=== PATIENT | female | born 1935 | race African-American/Black ===

== ENCOUNTER 2017-08-21 13:09 | Inpatient (IN) | payer OTHER, BC ==
[2017-08-21 13:15] VITALS: BMI 27.4
--- NOTE | 2017-08-21 16:36 | PDOC ---
History of Present Illness - General History Source: Patient, Family Exam Limitations: No Limitations - History of Present Illness Initial Comments: 08/21/17 20:24 The patient is a 81 year old female with a significant PMH of hypertension, hyperlipidemia and defibrillator placement (unclear rason) who presents to the emergency department with dizziness and nausea that began earlier today. She reports that she had breakfast this morming and felt okay.The patient reports that her nausea and dizziness began at around 12pm earlier today when she was on her way to the community center that she attends normally. She states that she got a car ride over to her community center and she started to feel her onset of dizziness and nausea while in the car . She reports that when she was dropped off to her community center it was noticed that she looked to be off balance. EMS was called and the patient states that she had associated episode of vomiting while on her way to the ED. She also reports a frontal headache after arriving to the ED. pt does endorse mild headche that started in the ED that is ressure like and in the front of her head.The patient denies any fever, chills or cough. She denies any SOB, chest pain, palpitation or vision change . The patient denies any diarrhea, constipation, She denies any dysuria, urinary frequency, urgency and hematuria. She denies any recent travel. Pt denes any visio nchangses, numbness/tingling/weakness. Allergies: NKA Past surgical history: Defibrillator placement <Linda Wang - Last Filed: 08/22/17 00:02> <Johnathan Arreola - Last Filed: 08/22/17 10:44> - General Chief Complaint: Lightheaded Stated Complaint: NAUSEA/VOMITING Time Seen by Provider: 08/21/17 16:23 NIH Stroke Scale - Last Known Well Date/Time & Onset Date Last Known Well: 08/21/17 Time Last Known Well: 12:00 - Initial Evaluation Level of consciousness: Alert Ask patient the month and their age: Answers both correctly Ask patient to open & close eyes; make fist and let go: Obeys both correctly Best gaze (horizontal eye movement): Normal Visual field testing: No visual field loss Facial paresis (Show teeth/raise eyebrows/close eyes tight): Normal symmetrical movement Motor Function: Left Arm: Normal Motor Function: Right Arm: Normal (extends arm 90 (or 45) degrees for 10 seconds without drift Motor Function: Left Leg: Normal (extends leg 30 degrees for 5 seconds without drift) Motor Function: Right Leg: Normal (extends leg 30 degrees for 5 seconds without drift) Limb Ataxia: Present in one limb Sensory(Use pinprick test arms,legs,trunk,face/side to side): Normal Best language (Describe picture, name items, read sentences): No Aphasia Dysarthria (read several words): Normal articulation Extinction and Inattention: No abnormality - Total Score NIH Stroke Scale Score: 1 <Johnathan Arreola - Last Filed: 08/22/17 10:44> tPA Exclusion checklist 3-4.5h - Time Elapsed Date last known well: 08/21/17 Time last known well: 12:00 (time elapsed approx 4.5 hrs) Elaspsed time: Day(s) and 22 Hour(s) and 43 Minutes - Thrombolytic Therapy Candidate Is patient eligible for thrombolytic therapy: No - Exclusion Criteria 3-4.5 hr SBP greater than 185 or DBP greater than 110mmHg despite tx: No Recent IC/spinal surgery,head trauma or stroke<3mos.: No Hx IC hemorrhage, IC neoplasm, AV malformation or aneurysm: No Active internal bleeding: No Blding diathesis(low plt ct, inc PTT,INR>1.7 or use of NOAC): No Symptoms suggest subarachnoid hemorrhage: No CT demonstrates multilobar infarct(>1/3 cerebral hemiphere): No Arterial puncture at noncompressible site in previous 7 days: No Blood glucose concentration less than 50mg/dL (2.7mmol/L): No - Relative Exclusion Criteria 3-4.5 hr Stroke severity too mild: Yes - Add'l Relative Exclusion 3-4.5 hr Age > 80: Yes - Ineligibility reason(s) Reasons No tPA given: Outside of window - delayed arrival, See reason(s) noted above <Johnathan Arreola - Last Filed: 08/22/17 10:44> Past History <Linda Wang - Last Filed: 08/22/17 00:02> - Past Medical History Cardiac Disorders: Yes COPD: No HTN: Yes - Surgical History Cardiac Surgery: Yes (AICD) - Immunization History Immunization Up to Date: Yes - Suicide/Smoking/Psychosocial Hx Smoking Status: No Smoking History: Never smoked Have you smoked in the past 12 months: No Number of Cigarettes Smoked Daily: 0 Information on smoking cessation initiated: No Hx Alcohol Use: No Drug/Substance Use Hx: No Substance Use Type: None <Johnathan Arreola - Last Filed: 08/22/17 10:44> - Past Medical History Allergies/Adverse Reactions: Allergies Allergy/AdvReac Type Severity Reaction Status Date / Time Penicillins Allergy Unknown Verified 08/21/17 13:11 egg Allergy Verified 08/21/17 13:11 Home Medications: Ambulatory Orders Amlodipine Besylate [Norvasc -] 10 mg PO DAILY 03/31/13 Aspirin [ASA -] 81 mg PO DAILY 03/31/13 Carvedilol [Coreg -] 12.5 mg PO BID 03/31/13 Simvastatin [Zocor] 20 mg PO HS 03/31/13 Ascorbic Acid [Vitamin C -] 500 mg PO DAILY 08/21/17 Cholecalciferol (Vitamin D3) [Vitamin D3] 400 unit PO DAILY 08/21/17 Losartan Potassium 100 mg PO DAILY 08/21/17 Review of Systems - Review of Systems Able to Perform ROS?: Yes Comments:: 08/21/17 20:24 CONSTITUTIONAL: No reported: Fever, Chills, Diaphoresis, Generalized Weakness, Malaise, Loss of Appetite HEENT: No reported: Rhinorrhea, Nasal Congestion, Throat Pain, Throat Swelling, Difficulty Swallowing, Mouth Swelling, Ear Pain, Eye Pain, Visual Changes CARDIOVASCULAR: No reported: Chest Pain, Syncope, Palpitations, Irregular Heart Rate, Lightheadedness, Peripheral Edema RESPIRATORY: No reported: Cough, Shortness of Breath, SOB with Exertion, Orthopnea, Wheezing , Stridor, Hemoptysis GASTROINTESTINAL: Reported (+) Nausea and vomiting No reported: Abdominal pain, Abdominal Distension, Diarrhea, Constipation, Melena, Hematochezia GENITOURINARY: No reported: Dysuria, Frequency, Urgency, Hesitancy, Flank Pain, Genital Pain MUSCULOSKELETAL: No reported: Myalgia, Arthralgia, Joint Swelling, Back pain, Neck Pain SKIN: No reported: Rash, Itching, Pallor HEMEATOLOGIC/IMMUNOLOGIC: No reported: Easy Bleeding, Easy Bruising, Lymphadenopathy, Frequent infections ENDOCRINE: No reported: Unexplained Weight Gain, Unexplained Weight Loss, Heat Intolerance , Cold Intolerance NEUROLOGIC: Reported (+) Headache, and dizziness No reported: Focal Weakness, Paresthesias, Vertigo, Lightheadedness, Unsteady Gait, Seizure, Mental Status Changes, Incontinence PSYCHIATRIC: No reported: Anxiety, Depression <Linda Wang - Last Filed: 08/22/17 00:02> *Physical Exam - Vital Signs Last Vital Signs Temp Pulse Resp BP Pulse Ox 97.7 F 73 14 160/90 96 08/21/17 13:12 08/21/17 17:31 08/21/17 17:31 08/21/17 17:31 08/21/17 17:31 - Physical Exam Comments: 08/21/17 20:25 GENERAL: The patient is awake, alert, and fully oriented, Nontoxic - in no acute distress. HEAD: Normocephalic, atraumatic. EYES: extraocular movements intact, sclera anicteric, conjunctiva clear. ENT: Normal voice, Moist mucous membranes. NECK: Normal range of motion, supple LUNGS: Breath sounds equal, clear to auscultation bilaterally. No wheezes, no rhonchi, no rales. HEART: Regular rate and rhythm, normal S1 and S2 without murmur, rub or gallop. ABDOMEN: Soft, nontender, normoactive bowel sounds. No guarding, no rebound. No CVA tenderness EXTREMITIES: Normal range of motion, no edema. No clubbing or cyanosis. No cords, erythema, or tenderness. NEUROLOGICAL: No facial assymetry, slightly delayed/slow speech, +dysmetria of LUE, strength symmetric b/l in upper.lower extremities, sensation symmetric in upper.lower extremities. No pronator drift. gait deferred PSYCH: Normal mood, normal affect. SKIN: Warm, Dry, normal turgor, <Linda Wang - Last Filed: 08/22/17 00:02> - Vital Signs Last Vital Signs Temp Pulse Resp BP Pulse Ox 97.7 F 66 18 179/98 100 08/21/17 13:12 08/21/17 13:12 08/21/17 13:12 08/21/17 13:12 08/21/17 13:12 <Johnathan Arreola - Last Filed: 08/22/17 10:44> Heart Score/ECG Review - ECG Impressions Comment:: 04/09/18 17:27 Twelve-lead EKG was performed and reviewed by me. There is normal sinus rhythm with rate of 55 First degree AV block Right bundle-branch block, left anterior fascicular block Abnormal R wave progression <Johnathan Arreola - Last Filed: 08/22/17 10:44> ED Treatment Course - LABORATORY CBC & Chemistry Diagram: 08/21/17 17:19 08/21/17 17:19 - ADDITIONAL ORDERS Additional order review: Laboratory Results 08/21/17 08/21/17 17:19 17:19 PT with INR 11.60 INR 1.03 Sodium 140 Potassium 3.7 Chloride 103 Carbon Dioxide 26 Anion Gap 11 BUN 21 H Creatinine 0.9 Creat Clearance w eGFR 59.80 Random Glucose 150 H Calcium 10.4 H Total Bilirubin 0.8 D AST 46 H ALT 22 Alkaline Phosphatase 102 Creatine Kinase 215 H Troponin I < 0.02 B-Natriuretic Peptide 164.98 Total Protein 8.7 H Albumin 4.6 08/21/17 17:19 RBC 5.84 H MCV 81.5 MCHC 33.5 RDW 14.8 MPV 8.2 Neutrophils % 87.4 H D Lymphocytes % 9.4 D Monocytes % 2.4 L Eosinophils % 0.4 D Basophils % 0.4 - RADIOLOGY Radiograph Interpretation: 08/21/17 18:59 EXAM: Cranial CT without contrast INTERPRETATION: In comparison to a previous CT exam of 10/19/2016 there is possible interval development of a subtle 1.7 cm acute left cerebellar hemispheric infarct. Correlate with close follow-up CT. Moderate to marked periventricular and subcortical chronic microvascular ischemic changes are noted. Reported by: Dr. Ma EXAM: Bilateral carotid doppler ultrasound INTERPRETATION:The vertebral arteries appear patent. No Doppler evidence of a high-grade carotid artery stenosis. Reported by: Dr. Ma - Medications Given in the ED: ED Medications Discontinued Medications Generic Name Dose Route Start Last Admin Trade Name Freq PRN Reason Stop Dose Admin Metoclopramide HCl 10 mg 08/21/17 16:39 08/21/17 17:19 Reglan Injection - IVPUSH 08/21/17 16:40 10 mg ONCE ONE Administration Ondansetron HCl 4 mg 08/21/17 16:37 08/21/17 17:19 Zofran Injection IVPB 08/21/17 16:38 Not Given ONCE ONE <Linda Wang - Last Filed: 08/22/17 00:02> - LABORATORY CBC & Chemistry Diagram: 08/22/17 06:00 08/22/17 06:00 <Johnathan Arreola - Last Filed: 08/22/17 10:44> Medical Decision Making - Medical Decision Making 08/21/17 20:[address] Wang at 8:40pm <Linda Wang - Last Filed: 08/22/17 00:02> - Medical Decision Making 08/21/17 16:37 81y F hx of htn, hl, hx of defibrillator placement for unclera reason (? bradycardia) presents with dizziness. The pt states that she was well tihs morning until she got to her day program, she felt alittle dizzy and someone at her center noticed she was not walking steadily and called EMS. Upon EMS transpot, the pt was noted to have an episode of nbnb vomit. Pt dnies any associated severe preceding headache, cp, palpitations, sob, fever/chills, abd pain, back pain, neck pain, numbness/tingling/weakness, vision changes. pt does note a ild headache curerntly since arrival to the ED. on exam pt is slow to answer questions and seem sto hav esome dysmetria of her LUE ddx for pts sypmtoms include possible cva, occult infection, atypical acs, anemia, metabolic derangement, will ck labs including cbc, cmp, trop, cxr, ua, ekg head ct to r/o cva reglan for nausea will place pt on cardiac montiro 08/21/17 19:[address] noted for acute changes in the cerebellum concernin gfor cva will admit for furhter mangaemnet 08/21/17 19:15 cxr clear 08/21/17 20:41 bp elevated, will give labetalol for bp control case dw dr frank agree with admission for furhter management will admit to stroke unit Case discussed in detail with admitting physician including history, physical exam and ancillary studies. Admitting physician has assumed care for the patient, will follow all pending diagnostics and will complete the evaluation and treatment. <Johnathan Arreola - Last Filed: 08/22/17 10:44> *DC/Admit/Observation/Transfer - Attestations Scribe Attestion: 08/21/17 20:26 Documentation prepared by Linda Wang, acting as biomedical field service engineer for Johnathan Arreola MD. <Linda Wang - Last Filed: 08/22/17 00:02> - Discharge Dispostion Admit: Yes <Johnathan Arreola - Last Filed: 08/22/17 10:44> Diagnosis at time of Disposition: Cerebellar infarction - Discharge Dispostion Condition at time of disposition: Guarded
[2017-08-21] MEDS ORDERED: ONDANSETRON 4 MG/2 ML VIAL IVPB ONE (16:37)
[2017-08-21] MEDS ORDERED: METOCLOPRAMIDE HCL INJECTION 10 MG/2 ML VIAL IVPUSH ONE (16:39)
[2017-08-21] MEDS ORDERED: METOCLOPRAMIDE HCL INJECTION 10 MG/2 ML VIAL ONE (16:56)
[2017-08-21 17:26] LABS: BASO % 0.4 % (0-2.0); EOS % 0.4 % (0-4.5); HEMATOCRIT 47.5 % (32.4-45.2); HEMOGLOBIN 15.9 GM/dL (10.7-15.3); LYMPH % 9.4 % (8-40); MCH 27.3 pg (25.7-33.7); MCHC 33.5 g/dl (32.0-36.0); MEAN CELL VOLUME 81.5 fl (80-96); MEAN PLT VOLUME 8.2 fl (7.5-11.1); MONO % 2.4 % (3.8-10.2); NEUT % 87.4 % (42.8-82.8); PLATELET COUNT 235 K/MM3 (134-434); RBC 5.84 M/mm3 (3.60-5.2); RDW 14.8 % (11.6-15.6); WHITE BLOOD COUNT 9.5 K/mm3 (4.0-10.0)
[2017-08-21 17:54] LABS: INR 1.03 (0.82-1.09); PROTHROMBIN TIME (PATIENT) 11.6 SEC (9.98-11.88)
[2017-08-21 17:58] LABS: ALBUMIN 4.6 g/dl (3.4-5.0); ANION GAP 11 (8-16); BILIRUBIN,TOTAL 0.8 mg/dL (0.2-1.0); BLOOD UREA NITROGEN 21 mg/dL (7-18); CALCIUM 10.4 mg/dL (8.5-10.1); CHLORIDE 103 mmol/L (98-107); CO2 26 mmol/L (21-32); CREATININE 0.9 mg/dL (0.55-1.02); GLUCOSE,RANDOM 150 mg/dL (74-106); POTASSIUM 3.7 mmol/L (3.5-5.1); SGOT/AST 46 U/L (15-37); SGPT/ALT 22 U/L (12-78); SODIUM 140 mmol/L (136-145); TOT PROT 8.7 g/dl (6.4-8.2)
[2017-08-21 18:01] LABS: ALK PHOS 102 U/L (45-117); N-TERMINAL BNP 164.98 pg/ml (5-450)
[2017-08-21] MEDS ORDERED: ASPIRIN 81 MG CHEWABLE TABLETS PO ONE (19:19)
[2017-08-21] MEDS ORDERED: ASPIRIN 325 MG TABLET ONE (19:25)
[2017-08-21] MEDS ORDERED: ASPIRIN COATED 81 MG TABLET.EC ONE (19:44)
[2017-08-21 20:32] LABS: URINE APPEARANCE CLOUDY; URINE BILIRUBIN NEGATIVE (<2.0 mg/dL); URINE BLOOD NEGATIVE (NEGATIVE); URINE COLOR YELLOW; URINE GLUCOSE (UA) NEGATIVE (NEGATIVE); URINE KETONE NEGATIVE (NEGATIVE); URINE NITRITE NEGATIVE (NEGATIVE); URINE PROTEIN NEGATIVE (NEGATIVE); URINE UROBILINOGEN NEGATIVE mg/dL (0.2-1.0)
--- NOTE | 2017-08-21 20:39 | PN ---
Teaching Attending Note Name of Resident: Mark Kim ATTENDING PHYSICIAN STATEMENT I saw and evaluated the patient. I reviewed the resident's note and discussed the case with the resident. I agree with the resident's findings and plan as documented. SUBJECTIVE: 81 F with pmhx. of HTN, HLD, and ICD, who presents with dizziness and nausea earlier today, States she was on her way to a community center when she felt dizzy in car. She also felt "off balence." As per daughter her words were slurring. She had a frontal headache upon arrival to ED. No chest pain, or pressure. No visual changes. She had 1 NBNB vomiting episode, in vehicle while on way to ED. No dysuria or increase in frequency. No shortness of breath. OBJECTIVE: Physical: VS: Vital Signs Period Temp Pulse Resp BP Sys/Castellanos Pulse Ox Last 24 Hr 97.7 F 66-73 14-18 160-179/90-98 96-100 GEN: NAD, Resting in bed, AA0x3 HEENT: NCAT, PERRL, Throat without erythema or exudates CARD: RRR S1, S2, ICD RESP: CTAB ABD: BSx4, NTD to palpation EXT: - C/C/E NEURO: CN II-XII Intact, MS +5/5 CBCD WBC 9.5 K/mm3 (4.0-10.0) D 08/21/17 17:19 RBC 5.84 M/mm3 (3.60-5.2) H 08/21/17 17:19 Hgb 15.9 GM/dL (10.7-15.3) H D 08/21/17 17:19 Hct 47.5 % (32.4-45.2) H 08/21/17 17:19 MCV 81.5 fl (80-96) 08/21/17 17:19 MCHC 33.5 g/dl (32.0-36.0) 08/21/17 17:19 RDW 14.8 % (11.6-15.6) 08/21/17 17:19 Plt Count 235 K/MM3 (134-434) 08/21/17 17:19 MPV 8.2 fl (7.5-11.1) 08/21/17 17:19 CMP Sodium 140 mmol/L (136-145) 08/21/17 17:19 Potassium 3.7 mmol/L (3.5-5.1) 08/21/17 17:19 Chloride 103 mmol/L (98-107) 08/21/17 17:19 Carbon Dioxide 26 mmol/L (21-32) 08/21/17 17:19 Anion Gap 11 (8-16) 08/21/17 17:19 BUN 21 mg/dL (7-18) H 08/21/17 17:19 Creatinine 0.9 mg/dL (0.55-1.02) 08/21/17 17:19 Creat Clearance w eGFR 59.80 (>60) 08/21/17 17:19 Random Glucose 150 mg/dL (74-106) H 08/21/17 17:19 Calcium 10.4 mg/dL (8.5-10.1) H 08/21/17 17:19 Total Bilirubin 0.8 mg/dL (0.2-1.0) D 08/21/17 17:19 AST 46 U/L (15-37) H 08/21/17 17:19 ALT 22 U/L (12-78) 08/21/17 17:19 Alkaline Phosphatase 102 U/L (45-117) 08/21/17 17:19 Total Protein 8.7 g/dl (6.4-8.2) H 08/21/17 17:19 Albumin 4.6 g/dl (3.4-5.0) 08/21/17 17:19 CARDIAC ENZYMES Creatine Kinase 215 IU/L (26-192) H 08/21/17 17:19 Troponin I < 0.02 ng/ml (0.00-0.05) 08/21/17 17:19 CT HEAD- Possible interval dev. of subtle 1.7cm acute left cerebellar hemispheric infarct. Correlate w. fu CCT, Mod- Marked subcortical microvascular ischemic changes, ASSESSMENT AND PLAN: 81 year old female with a significant PMH of hypertension, hyperlipidemia and defibrillator placement (unclear rason) who presents to the emergency department with dizziness and nausea being admitted for CVA 1.) CVA - ASA/Statin - Echo/Carotid - Has ICD- Repeat CT HEAD - Neuro consult - TSH. B12, folate - Trend Trop/EKG 2.) HTN - S Slick - Hold BB - C/W Amlodipine 3.) HLD - Statin - Check. Lipid Panel 4.) UTI - UCx - Levaquin 5.) Dvt Ppx - SCDS Place in Stroke Tele
[2017-08-21 20:48] LABS: URINE LEUK ESTERASE 3+ (NEGATIVE)
[2017-08-21 20:50] LABS: EPI CELLS MODERATE /HPF (FEW); URINE BACTERIA MANY /hpf (NONE SEEN); URINE HYALINE CAST 2 /lpf; URINE MUCUS RARE
--- NOTE | 2017-08-21 20:57 | HP ---
CHIEF COMPLAINT: Dizziness PCP: Dr Huerta Neuro: Dr Wang Cardio: Dr Carlson HISTORY OF PRESENT ILLNESS: 79yo F w/ PMHx of HTN, HLD, Defibrillator placement who presented to ED w/ dizziness. At around 12pm this afternoon, patient was heading to her daycare program and suddenly experienced two episodes of dizziness, along with frontal headache and NBNB emesis. Pt walks with a cane, and her gait was noticeably unsteady. She denies similar episodes in the past. Denies focal weakness, numbness, tingling. Denies chest pain, palpitations, SOB, vision changes, diaphoresis. Believes defibrillator did not fire. 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 She was outside tPA window, and was given ASA 325. EKG shows chronic bifascicular block. Labs also notable for UTI. Recent Travel: Denies PAST MEDICAL HISTORY: HTN, HLD PAST SURGICAL HISTORY: Defibrillator Placement Social History: Smoking: Denies Alcohol: Denies Drugs: Denies Allergies Penicillins Allergy (Unknown, Verified 08/21/17 13:11) Egg Allergy (Verified 08/21/17 13:11) HOME MEDICATIONS: Home Medications Medication Instructions Recorded Amlodipine Besylate [Norvasc -] 10 mg PO DAILY 03/31/13 Aspirin [ASA -] 81 mg PO DAILY 03/31/13 Carvedilol [Coreg -] 12.5 mg PO BID 03/31/13 Simvastatin [Zocor] 20 mg PO HS 03/31/13 Ascorbic Acid [Vitamin C -] 500 mg PO DAILY 08/21/17 Cholecalciferol (Vitamin D3) 400 unit PO DAILY 08/21/17 [Vitamin D3] Losartan Potassium 100 mg PO DAILY 08/21/17 REVIEW OF SYSTEMS CONSTITUTIONAL: No fever, chills, diaphoresis, generalized weakness, malaise, loss of appetite, weight change HEENT: No rhinorrhea, nasal congestion, throat pain, throat swelling, difficulty swallowing, mouth swelling, ear pain, eye pain, visual changes CARDIOVASCULAR: No chest pain, syncope, palpitations, irregular heart rate, lightheadedness, peripheral edema RESPIRATORY: No cough, shortness of breath, dyspnea with exertion, orthopnea, wheezing, stridor, hemoptysis GASTROINTESTINAL: No abdominal pain, abdominal distension, nausea, vomiting, diarrhea, constipation, melena, hematochezia GENITOURINARY: No dysuria, frequency, urgency, hesitancy, hematuria, flank pain , genital pain MUSCULOSKELETAL: No myalgia, arthralgia, joint swelling, back pain, neck pain SKIN: No rash, itching, pallor HEMATOLOGIC/IMMUNOLOGIC: No easy bleeding, easy bruising, lymphadenopathy, frequent infections ENDOCRINE: Nounexplained weight gain, unexplained weight loss, heat intolerance , cold intolerance NEUROLOGIC: + headache, +dizziness. No focal weakness or paresthesias, seizure, mental status changes, bladder or bowel incontinence PSYCHIATRIC: No anxiety, depression, suicidal or homicidal ideation, hallucinations. PHYSICAL EXAMINATION Vital Signs Period Temp Pulse Resp BP Sys/Castellanos Pulse Ox Last 24 Hr 97.7 F 66-73 14-18 160-179/90-98 96-100 GEN: AAOx3, No acute distress, slow speech HEENT: PERRLA, EOMi, +nystagmus CV: S1, S2, RRR LUNG: CTABL ABD: Soft, NT, ND, normoactive BS MSK: No edema, no erythema NEURO: CN 2-12 grossly intact No facial droop, no facial sensation deficits No UE or LE muscular or sensation deficits +dysmetria and +disdiadokinesia Pt refused gait assessment. ASSESSMENT/PLAN: 79yo F w/ PMHx of HTN, HLD, Defibrillator placement presented to ED w/ dizziness , found to have acute L cerebellar CVA # Ischemic Cerebellar CVA -- I suspect the patient's dizziness is most likely secondary to acute CVA. Head CT shows possible development of new 1.7cm L cerebellar infarct. Pt has risk factors for ischemic stroke (HTN, HLD). She was out of tPA window. ASA 325mg x1 given. Will allow permissive HTN up to 220/120mmHg. Hold home BB. No stenosis seen on carotid dopplers. Will repeat CT in AM to confirm CVA. Unable to get MRI since defibrillator is not compatible. Echo ordered. NPO for now. Speech/swallow. PT. Neuro consult (Felipe). # Bifascicular Block -- Chronic. It is also possible, but less likely, that her dizziness was 2/2 an arrhythmia, but no new arrhythmias detected on EKG. Pt believes AICD did not fire. Follows w/ Dr Carlson. Will monitor on tele for new arrhythmias. No chest pain philippe. First trops neg. Second set pending. New EKG in AM. # UTI -- Asymptomatic. I suspect this is an incidental finding. UCx obtained. Allergic to PCN. Will treat w/ Levaquin 750 daily. QTc 495. Repeat EKG in AM. # HTN -- Allow permissive HTN. Hold BB. Continue CCB and ARB # HLD -- Continue home lipitor 10 HS # FEN/PPx -- IVNS @42cc/hr. NPO for now until s/s eval -- SCDs. # Dispo -- Admit to stroke tele Case d/w Dr Del Angel & Dr Leger Morning team to takeover care in AM. Mark Kim MD - PGY1 Night [employer] Helper Visit type - Emergency Visit Emergency Visit: Yes ED Registration Date: 08/21/17 Care time: The patient presented to the Emergency Department on the above date and was hospitalized for further evaluation of their emergent condition. - New Patient This patient is new to me today: Yes Date on this admission: 08/22/17 - Critical Care Critical Care patient: No Hospitalist Screening - Patient: 50 - 75 years old and never had a screening colonoscopy: Unknown History of colon or rectal polyps, or CA: Unknown History of IBD, Crohn's disease or UC: Unknown History of abdominal radiation therapy as a child: Unknown - Relative: 1 with colon or rectal CA, or polyps at age 60 or younger: Unknown Colon or rectal CA diagnosed at age 45 or younger: Unknown Multiple relatives with colon or rectal CA: Unknown - Outcome: Screening Result: Negative Screen
[2017-08-21] MEDS ORDERED: SODIUM CHLORIDE 1,000 ML IV SCH (21:00)
[2017-08-21] MEDS: LABETALOL HCL 5 MG/1 ML (100MG/20 ML VIAL) IVPUSH ONE ×2 (21:17→21:36)
[2017-08-21] MEDS ORDERED: LABETALOL HCL 5 MG/1 ML (200MG/40ML VIAL) IVPB ONE (21:18)
[2017-08-21] MEDS: SODIUM CHLORIDE 1,000 ML IV SCH (23:10)
[2017-08-21] MEDS: ATORVASTATIN CA 10 MG TABLET (FP) PO SCH (23:10)
[2017-08-22 07:52] LABS: BASO % 0.2 % (0-2.0); EOS % 0.5 % (0-4.5); HEMATOCRIT 41.6 % (32.4-45.2); HEMOGLOBIN 14.2 GM/dL (10.7-15.3); LYMPH % 15.3 % (8-40); MCH 27.4 pg (25.7-33.7); MCHC 34.1 g/dl (32.0-36.0); MEAN CELL VOLUME 80.2 fl (80-96); MEAN PLT VOLUME 8.3 fl (7.5-11.1); PLATELET COUNT 225 K/MM3 (134-434); RBC 5.19 M/mm3 (3.60-5.2); RDW 14.8 % (11.6-15.6); WHITE BLOOD COUNT 7.6 K/mm3 (4.0-10.0)
[2017-08-22 07:56] LABS: ANION GAP 8 (8-16); BLOOD UREA NITROGEN 14 mg/dL (7-18); CALCIUM 9.3 mg/dL (8.5-10.1); CHLORIDE 107 mmol/L (98-107); CHOLESTEROL 132 mg/dL (50-200); CO2 26 mmol/L (21-32); CREATININE 0.6 mg/dL (0.55-1.02); GLUCOSE,RANDOM 102 mg/dL (74-106); MAGNESIUM 1.9 mg/dL (1.8-2.4); PHOSPHOROUS 3.8 mg/dL (2.5-4.9); POTASSIUM 3.4 mmol/L (3.5-5.1); SODIUM 141 mmol/L (136-145); TRIGLYCERIDES 49 mg/dL (35-160)
[2017-08-22 07:57] LABS: INR 1.1 (0.82-1.09); PROTHROMBIN TIME (PATIENT) 12.4 SEC (9.98-11.88)
[2017-08-22 08:00] LABS: ACTIVATED PTT 29.2 SECONDS (26.9-34.4)
[2017-08-22 08:06] LABS: HDL CHOLESTEROL 63 mg/dL (40-60); LDL CHOLESTEROL (ONLY SJRH) 68 mg/dL (5-100)
[2017-08-22] MEDS ORDERED: POTASSIUM CHLORIDE ORAL LIQUID 20 MEQ/15 ML PO ONE (09:45)
--- NOTE | 2017-08-22 10:37 | EKG ---
Test Reason : Blood Pressure : / mmHG Vent. Rate : 055 BPM Atrial Rate : 055 BPM P-R Int : 236 ms QRS Dur : 168 ms QT Int : 518 ms P-R-T Axes : 041 -71 -01 degrees QTc Int : 495 ms SINUS BRADYCARDIA WITH 1ST DEGREE A-V BLOCK RIGHT BUNDLE BRANCH BLOCK LEFT ANTERIOR FASCICULAR BLOCK BIFASCICULAR BLOCK MODERATE VOLTAGE CRITERIA FOR LVH, MAY BE NORMAL VARIANT ABNORMAL ECG WHEN COMPARED WITH ECG OF 18-JUN-2015 12:33, ID INTERVAL HAS INCREASED Confirmed by MD Ze, Saw ([id number]) on 08/22/2017 10:37:03 AM Referred By: Confirmed By:Saw Kunz MD
[2017-08-22] MEDS ORDERED: POTASSIUM CHLORIDE ORAL LIQUID 20 MEQ/15 ML ONE ×2 (11:00→11:12)
[2017-08-22] MEDS: LOSARTAN POTASSIUM 50 MG TABLET (FP) PO SCH (11:10)
[2017-08-22] MEDS: ASPIRIN 81 MG CHEWABLE TABLETS PO SCH (11:10)
[2017-08-22] MEDS: amLODIPine BESYLATE 10 MG TABLET (FP) PO SCH (11:10)
--- NOTE | 2017-08-22 13:59 | CONSULT ---
Admitting History and Physical - Primary Care Physician PCP: Sekou Davis - Admission History of Present Illness: per emr: 79yo F w/ PMHx of HTN, HLD, Defibrillator placement who presented to ED w/ dizziness. At around 12pm this afternoon, patient was heading to her daycare program and suddenly experienced two episodes of dizziness, along with frontal headache and NBNB emesis. Pt walks with a cane, and her gait was noticeably unsteady. She denies similar episodes in the past. Denies focal weakness, numbness, tingling. Denies chest pain, palpitations, SOB, vision changes, diaphoresis. Believes defibrillator did not fire. 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 She was outside tPA window, and was given ASA 325. EKG shows chronic bifascicular block. Labs also notable for UTI. This is my first consult with this pt. Pt seen in ER. o x 3. Speech mildly imprecise. Pt's daughter reports that her speech was worse yesterday. She feels it is not back to baseline. While speaking to Ms. Loya, she started coughing on her saliva, and then heaving, followed by vomiting clear liquid. Nursing made aware. History Source: Patient, Family Member, Medical Record Limitations to Obtaining History: No Limitations - Smoking History Smoking history: Never smoked Have you smoked in the past 12 months: No Aproximately how many cigarettes per day: 0 - Alcohol/Substance Use Hx Alcohol Use: No History - Admission Reason For Visit: CEREBELLAR INFARCTION - Diagnostics CT Scan: Report Reviewed (acute 1.7cm L cerebellar infarct, w/o hemorrhage) - General Mental Status: Alert and Oriented, Awake and Alert, Able to Follow Commands Attention: Intact Ability to Follow Directions: Excellent Head/Neck Control: WFL - Hearing Hearing: Functional Speech Evaluation - Communication Primary Language: [place] Communication: Yes: Within Normal Limits Oral Expression Ability: Yes: No Impairment - Speech Production Able to Make Needs Known: Yes: WNL Intelligibility: Yes: WNL - Speech Characteristics Voice Loudness: Normal Voice Pitch: Yes: Normal Voice Phonatory-based Quality: Yes: Normal Speech Pattern: Normal Speech Clarity: < 100% Nasal Resonance: Normal Articulation: Yes: Imprecise (slight?) Rate of Speech: Intact - Language/Auditory Comprehension Follows: Yes: 2 Stage Simple Commands Observation: Able to respond to yes/no queries: Yes, Yes/No Confusion: No, Comprehends Conversational Speech: Yes - Language/Verbal Expression Able to Respond to Simple Queries: Yes: WNL Able to Communicate Wants and Needs: Yes: WNL Functional Communication Status: Yes: WNL - Memory/Perception longterm Memory: Yes: WNL Short Term Memory: Yes: WNL - Swallow Evaluation/Bedside Assessment Current Nutritional Intake: NPO Dentition: Yes: Dental Appliance Upper, Dental Appliance Lower Facial Symmetry on Retraction: Symmetrical Facial Movement: Controlled Against Resistance Opening: Normal Against Resistance Closing: Normal Pucker Lips: Normal Smile: Normal Lingual Movement: Normal, Symmetric Lingual Speed of Movement: Normal Lingual Movement Strgth Against Opposition: Normal Lingual Movement Characteristics: Normal Velopharyngeal Movement: Normal Laryngeal Elevation: WFL Laryngeal Movement: Able to Palpate Labial Seal: WFL Oral Prep Time: WFL A-P Transit: WFL Pocketing: None Coughing/Throat Clear: No Change in Voice: No Recommendations - Speech Evaluation, Impression/Plan Impression: Speech slightly imprecise, per daughter.Improved but not at baseline.While speaking to Ms. Loya, she started coughing on her saliva, and then heaving, followed by vomiting clear liquid. Nursing made aware. 3 oz water test (-). Food trials not given due to recent vomiting. Dysphagia not suspected clinically but pt at risk due to cerebellar CVA. - Dysphagia Impressions/Plan Dysphagia Impressions: Ongoing Evaluation *Silent aspiration: cannot be R/O at bedside - Recommendations Diet Consistency: Regular (soft. trial once nausea subsides), Other (monitor tolerance) Medication Administration: Whole with water Liquids: Thin Liquids
[2017-08-22] MEDS ORDERED: PROMETHAZINE HCL 25 MG TABLET PO PRN (16:26)
--- NOTE | 2017-08-22 17:20 | PN ---
Teaching Attending Note Name of Resident: Dilan Mata ATTENDING PHYSICIAN STATEMENT I saw and evaluated the patient. I reviewed the resident's note and discussed the case with the resident. I agree with the resident's findings and plan as documented. SUBJECTIVE: Patient continues to feel dizzy. OBJECTIVE: Vital Signs Period Temp Pulse Resp BP Sys/Castellanos Pulse Ox Last 24 Hr 97.8 F-98.4 F 67-79 14-20 130-160/84-95 96-98 HEART: S1S2, RRR LUNGS: Clear ABDOMEN: Soft, non-tender, non-distended, normal BS EXTREMITIES: No edema NEUROLOGICAL: Alert, oriented, strength and sensation intact, (+) dysmetria Laboratory Results - last 24 hr 08/21/17 08/21/17 08/21/17 17:19 17:19 17:19 WBC 9.5 D RBC 5.84 H Hgb 15.9 H D Hct 47.5 H MCV 81.5 MCH 27.3 MCHC 33.5 RDW 14.8 Plt Count 235 MPV 8.2 Neutrophils % 87.4 H D Lymphocytes % 9.4 D Monocytes % 2.4 L Eosinophils % 0.4 D Basophils % 0.4 PT with INR 11.60 INR 1.03 PTT (Actin FS) Sodium 140 Potassium 3.7 Chloride 103 Carbon Dioxide 26 Anion Gap 11 BUN 21 H Creatinine 0.9 Creat Clearance w eGFR 59.80 Random Glucose 150 H Hemoglobin A1c % Calcium 10.4 H Phosphorus Magnesium Total Bilirubin 0.8 D AST 46 H ALT 22 Alkaline Phosphatase 102 Creatine Kinase 215 H Creatine Kinase Index 1.2 CK-MB (CK-2) 2.759 Troponin I < 0.02 B-Natriuretic Peptide 164.98 Total Protein 8.7 H Albumin 4.6 Triglycerides Cholesterol Total LDL Cholesterol HDL Cholesterol Vitamin B12 Serum Folate TSH Urine Color Urine Appearance Urine pH Ur Specific [place] Urine Protein Urine Glucose (UA) Urine Ketones Urine Blood Urine Nitrite Urine Bilirubin Urine Urobilinogen Ur Leukocyte Esterase Urine WBC (Auto) Urine RBC (Auto) Ur Epithelial Cells Urine Bacteria Hyaline Casts Urine Mucus 08/21/17 08/22/17 08/22/17 20:12 06:00 06:00 WBC 7.6 RBC 5.19 Hgb 14.2 D Hct 41.6 MCV 80.2 MCH 27.4 MCHC 34.1 RDW 14.8 Plt Count 225 MPV 8.3 Neutrophils % 76.0 Lymphocytes % 15.3 D Monocytes % 8.0 D Eosinophils % 0.5 Basophils % 0.2 PT with INR 12.40 H INR 1.10 PTT (Actin FS) 29.2 Sodium Potassium Chloride Carbon Dioxide Anion Gap BUN Creatinine Creat Clearance w eGFR Random Glucose Hemoglobin A1c % Calcium Phosphorus Magnesium Total Bilirubin AST ALT Alkaline Phosphatase Creatine Kinase Creatine Kinase Index CK-MB (CK-2) Troponin I B-Natriuretic Peptide Total Protein Albumin Triglycerides Cholesterol Total LDL Cholesterol HDL Cholesterol Vitamin B12 Serum Folate TSH Urine Color Yellow Urine Appearance Cloudy Urine pH 7.0 Ur Specific [place] 1.014 Urine Protein Negative Urine Glucose (UA) Negative Urine Ketones Negative Urine Blood Negative Urine Nitrite Negative Urine Bilirubin Negative Urine Urobilinogen Negative Ur Leukocyte Esterase 3+ H Urine WBC (Auto) 30 Urine RBC (Auto) 2 Ur Epithelial Cells Moderate Urine Bacteria Many Hyaline Casts 2 Urine Mucus Rare 08/22/17 08/22/17 08/22/17 06:00 06:00 06:00 WBC RBC Hgb Hct MCV MCH MCHC RDW Plt Count MPV Neutrophils % Lymphocytes % Monocytes % Eosinophils % Basophils % PT with INR INR PTT (Actin FS) Sodium 141 Potassium 3.4 L Chloride 107 Carbon Dioxide 26 Anion Gap 8 BUN 14 Creatinine 0.6 Creat Clearance w eGFR Random Glucose 102 Hemoglobin A1c % 6.3 H Calcium 9.3 Phosphorus 3.8 Magnesium 1.9 Total Bilirubin AST ALT Alkaline Phosphatase Creatine Kinase 153 Creatine Kinase Index 1.3 CK-MB (CK-2) 2.110 Troponin I < 0.02 B-Natriuretic Peptide Total Protein Albumin Triglycerides 49 Cholesterol 132 Total LDL Cholesterol 68 HDL Cholesterol 63 H Vitamin B12 418 Cancelled Serum Folate 10 TSH 1.15 Urine Color Urine Appearance Urine pH Ur Specific [place] Urine Protein Urine Glucose (UA) Urine Ketones Urine Blood Urine Nitrite Urine Bilirubin Urine Urobilinogen Ur Leukocyte Esterase Urine WBC (Auto) Urine RBC (Auto) Ur Epithelial Cells Urine Bacteria Hyaline Casts Urine Mucus 08/22/17 06:00 WBC RBC Hgb Hct MCV MCH MCHC RDW Plt Count MPV Neutrophils % Lymphocytes % Monocytes % Eosinophils % Basophils % PT with INR INR PTT (Actin FS) Sodium Potassium Chloride Carbon Dioxide Anion Gap BUN Creatinine Creat Clearance w eGFR Random Glucose Hemoglobin A1c % Calcium Phosphorus Magnesium Total Bilirubin AST ALT Alkaline Phosphatase Creatine Kinase Cancelled Creatine Kinase Index CK-MB (CK-2) Troponin I Cancelled B-Natriuretic Peptide Total Protein Albumin Triglycerides Cholesterol Total LDL Cholesterol HDL Cholesterol Vitamin B12 Serum Folate TSH Urine Color Urine Appearance Urine pH Ur Specific [place] Urine Protein Urine Glucose (UA) Urine Ketones Urine Blood Urine Nitrite Urine Bilirubin Urine Urobilinogen Ur Leukocyte Esterase Urine WBC (Auto) Urine RBC (Auto) Ur Epithelial Cells Urine Bacteria Hyaline Casts Urine Mucus Current Medications Generic Name Dose Route Start Last Admin Trade Name Freq PRN Reason Stop Dose Admin Amlodipine Besylate 10 mg 08/22/17 10:00 08/22/17 11:10 Norvasc - PO 10 mg DAILY JOSE Administration Aspirin 81 mg 08/22/17 10:00 08/22/17 11:10 Asa - PO 81 mg DAILY JOSE Administration Atorvastatin Calcium 10 mg 08/21/17 22:00 08/21/17 23:10 Lipitor - PO 10 mg HS JOSE Administration Sodium Chloride 1,000 mls @ 42 mls/hr 08/21/17 22:10 08/21/17 23:10 Normal Saline - IV 42 mls/hr ASDIR JOSE Administration Levofloxacin 750 mg in 150 mls @ 150 mls/hr 08/22/17 06:00 08/22/17 09:43 Levaquin 750 Mg Premixed Ivpb - IVPB 150 mls/hr DAILY@0600 JOSE Administration Losartan Potassium 100 mg 08/22/17 10:00 08/22/17 11:10 Cozaar - PO 100 mg DAILY JOSE Administration Promethazine HCl 12.5 mg 08/22/17 16:26 Phenergan - PO Q6H PRN NAUSEA AND/OR VOMITING ASSESSMENT AND PLAN: This is an 79 year old woman with a history of HTN, hyperlipidemia, AICD who presented to the ED with dizziness. 1. Acute ischemic left cerebellar infarct - Continue aspirin, Lipitor - CTA of neck and brain - Echocardiogram - Swallow evaluation noted - Physical therapy - Awaiting neurology evaluation 2. UTI - Continue Levaquin - Follow up urine culture 3. HTN - Continue Cozaar, Norvasc 4. Hyperlipidemia - Continue Lipitor 5. Bifascicular block (RBBB + LAFB), first degree AV block
--- NOTE | 2017-08-22 19:36 | PN ---
Physical Exam: SUBJECTIVE: Patient seen and examined at bedside. c/o dizziness and nausea in the ED. OBJECTIVE: Vital Signs Period Temp Pulse Resp BP Sys/Castellanos Pulse Ox Last 24 Hr 97.8 F-98.4 F 67-79 18-20 130-160/84-95 98-98 GENERAL: The patient is awake, alert, and fully oriented, in no acute distress. HEAD: Normal with no signs of trauma. EYES: PERRL, extraocular movements intact, horizontal nystagmus present, sclera anicteric, conjunctiva clear. No ptosis. ENT: Ears normal, nares patent, oropharynx clear without exudates, moist mucous membranes. NECK: Trachea midline, full range of motion, supple. LUNGS: Breath sounds equal, clear to auscultation bilaterally, no wheezes, no crackles, no accessory muscle use. HEART: Regular rate and rhythm, S1, S2 without murmur, rub or gallop. ABDOMEN: Soft, nontender, nondistended, normoactive bowel sounds, no guarding, no rebound, no hepatosplenomegaly, no masses. EXTREMITIES: 2+ pulses, warm, well-perfused, no edema. NEUROLOGICAL: Cranial nerves II through XII grossly intact. Normal speech, gait not observed. Strength 5/5 in all extremities. Dysmetria present. PSYCH: Normal mood, normal affect. SKIN: Warm, dry, normal turgor, no rashes or lesions noted Laboratory Results - last 24 hr 08/21/17 08/21/17 08/22/17 17:19 20:12 06:00 WBC 7.6 RBC 5.19 Hgb 14.2 D Hct 41.6 MCV 80.2 MCH 27.4 MCHC 34.1 RDW 14.8 Plt Count 225 MPV 8.3 Neutrophils % 76.0 Lymphocytes % 15.3 D Monocytes % 8.0 D Eosinophils % 0.5 Basophils % 0.2 PT with INR INR PTT (Actin FS) Sodium Potassium Chloride Carbon Dioxide Anion Gap BUN Creatinine Random Glucose Hemoglobin A1c % Calcium Phosphorus Magnesium Creatine Kinase Creatine Kinase Index 1.2 CK-MB (CK-2) 2.759 Troponin I Triglycerides Cholesterol Total LDL Cholesterol HDL Cholesterol Vitamin B12 Serum Folate TSH Urine Color Yellow Urine Appearance Cloudy Urine pH 7.0 Ur Specific [place] 1.014 Urine Protein Negative Urine Glucose (UA) Negative Urine Ketones Negative Urine Blood Negative Urine Nitrite Negative Urine Bilirubin Negative Urine Urobilinogen Negative Ur Leukocyte Esterase 3+ H Urine WBC (Auto) 30 Urine RBC (Auto) 2 Ur Epithelial Cells Moderate Urine Bacteria Many Hyaline Casts 2 Urine Mucus Rare 08/22/17 08/22/17 08/22/17 06:00 06:00 06:00 WBC RBC Hgb Hct MCV MCH MCHC RDW Plt Count MPV Neutrophils % Lymphocytes % Monocytes % Eosinophils % Basophils % PT with INR 12.40 H INR 1.10 PTT (Actin FS) 29.2 Sodium 141 Potassium 3.4 L Chloride 107 Carbon Dioxide 26 Anion Gap 8 BUN 14 Creatinine 0.6 Random Glucose 102 Hemoglobin A1c % 6.3 H Calcium 9.3 Phosphorus 3.8 Magnesium 1.9 Creatine Kinase 153 Creatine Kinase Index 1.3 CK-MB (CK-2) 2.110 Troponin I < 0.02 Triglycerides 49 Cholesterol 132 Total LDL Cholesterol 68 HDL Cholesterol 63 H Vitamin B12 418 Serum Folate 10 TSH 1.15 Urine Color Urine Appearance Urine pH Ur Specific [place] Urine Protein Urine Glucose (UA) Urine Ketones Urine Blood Urine Nitrite Urine Bilirubin Urine Urobilinogen Ur Leukocyte Esterase Urine WBC (Auto) Urine RBC (Auto) Ur Epithelial Cells Urine Bacteria Hyaline Casts Urine Mucus 08/22/17 08/22/17 06:00 06:00 WBC RBC Hgb Hct MCV MCH MCHC RDW Plt Count MPV Neutrophils % Lymphocytes % Monocytes % Eosinophils % Basophils % PT with INR INR PTT (Actin FS) Sodium Potassium Chloride Carbon Dioxide Anion Gap BUN Creatinine Random Glucose Hemoglobin A1c % Calcium Phosphorus Magnesium Creatine Kinase Cancelled Creatine Kinase Index CK-MB (CK-2) Troponin I Cancelled Triglycerides Cholesterol Total LDL Cholesterol HDL Cholesterol Vitamin B12 Cancelled Serum Folate TSH Urine Color Urine Appearance Urine pH Ur Specific [place] Urine Protein Urine Glucose (UA) Urine Ketones Urine Blood Urine Nitrite Urine Bilirubin Urine Urobilinogen Ur Leukocyte Esterase Urine WBC (Auto) Urine RBC (Auto) Ur Epithelial Cells Urine Bacteria Hyaline Casts Urine Mucus Active Medications Generic Name Dose Route Start Last Admin Trade Name Freq PRN Reason Stop Dose Admin Amlodipine Besylate 10 mg 08/22/17 10:00 08/22/17 11:10 Norvasc - PO 10 mg DAILY JOSE Administration Aspirin 81 mg 08/22/17 10:00 08/22/17 11:10 Asa - PO 81 mg DAILY JOSE Administration Atorvastatin Calcium 10 mg 08/21/17 22:00 08/21/17 23:10 Lipitor - PO 10 mg HS JOSE Administration Sodium Chloride 1,000 mls @ 42 mls/hr 08/21/17 22:10 08/21/17 23:10 Normal Saline - IV 42 mls/hr ASDIR JOSE Administration Levofloxacin 750 mg in 150 mls @ 150 mls/hr 08/22/17 06:00 08/22/17 09:43 Levaquin 750 Mg Premixed Ivpb - IVPB 150 mls/hr DAILY@0600 JOSE Administration Losartan Potassium 100 mg 08/22/17 10:00 08/22/17 11:10 Cozaar - PO 100 mg DAILY JOSE Administration Promethazine HCl 12.5 mg 08/22/17 16:26 Phenergan - PO Q6H PRN NAUSEA AND/OR VOMITING ASSESSMENT/PLAN: 79yo F w/ PMHx of HTN, HLD, Defibrillator placement presented to ED w/ dizziness , found to have acute L cerebellar CVA # Ischemic Cerebellar CVA -Head CT shows possible development of new 1.7cm L cerebellar infarct. -ASA 325mg x1 given. -permissive HTN up to 220/120mmHg. -Speech/swallow eval cleared patient for -PT -Neuro consult -CTA to eval for vascular abnormalities -phenergan prn nausea # Bifascicular Block -Cardio consult -chronic -no palpitations -per patient, ICD did not fire # UTI -pt currently Asymptomatic -UCx pending -Levaquin 750 daily as pt PCN allergic # HTN -Allow permissive HTN -C/w home coreg, norvasc, losartan # HLD -c/w home lipitor 10 HS # FEN -NS @ 42 -monitor lytes #Prophy -SCDs. # Dispo -Admit to stroke tele Visit type - Emergency Visit Emergency Visit: Yes ED Registration Date: 08/21/17 Care time: The patient presented to the Emergency Department on the above date and was hospitalized for further evaluation of their emergent condition. - New Patient This patient is new to me today: Yes Date on this admission: 08/22/17 - Critical Care Critical Care patient: No
--- NOTE | 2017-08-22 21:09 | CONSULT ---
Consult - text type - Consultation Consultation Note: NEUROLOGY CONSULTATION is greatly appreciated: This 81 yo RH woman is seen with her daughter at the bedside. PMH sig for HTN, Chol, ASHD, s/p defibrillator. Maintained on amlodipine, ASA, Carvedilol, simvastatin and losartan. Walks with cane due to pain "buckling" of left knee. Yesterday developed dizziness, unsteady gait, nausea, and dull frontal headache. CT of head x2 (reviewed): shows a new left cerebellar infarct. Old, scattered white mater microvascular changes. Carotid duplex dopplers: No significant stenosis. CADEN: No bruits. Cor reg. S/P PPM No external head trauma NEURO: Awake, alert, OX3. Fluent with min dysarthria CN II-XII normal without Nystagmus. Swallows sips H2O without difficulty. Motor. No drift. Normal strength. Decreased KENN's L>R. Normal reflexes. Toes downgoing Coord: Min Left FTN and HTS dystaxia Sensory: Normal Gait deferred. IMP: New left cerebral ischemic infarct. Etiology most likely Hypertensive. Underlying microvascular disease. SUGGEST: Keep BP in 120/80 range. Add plavix to ASA 81. Cardiology eval Physiatry eval. [facility] transfer for short term in patient rehab. Thank you very much, Waldemar Wang MD
[2017-08-22] MEDS: ATORVASTATIN CA 10 MG TABLET (FP) PO SCH (22:53)
[2017-08-22] MEDS: SODIUM CHLORIDE 1,000 ML IV SCH (22:53)
[2017-08-23 07:50] LABS: BASO % 0.5 % (0-2.0); EOS % 0.9 % (0-4.5); HEMATOCRIT 45.7 % (32.4-45.2); HEMOGLOBIN 15.2 GM/dL (10.7-15.3); MCHC 33.3 g/dl (32.0-36.0); MEAN CELL VOLUME 80.9 fl (80-96); MEAN PLT VOLUME 8.1 fl (7.5-11.1); MONO % 8.8 % (3.8-10.2); NEUT % 76.8 % (42.8-82.8); PLATELET COUNT 216 K/MM3 (134-434); RBC 5.65 M/mm3 (3.60-5.2); RDW 14.8 % (11.6-15.6); WHITE BLOOD COUNT 9.4 K/mm3 (4.0-10.0)
[2017-08-23 08:09] LABS: INR 1.1 (0.82-1.09); PROTHROMBIN TIME (PATIENT) 12.4 SEC (9.98-11.88)
[2017-08-23 08:12] LABS: ACTIVATED PTT 29.3 SECONDS (26.9-34.4)
[2017-08-23 08:28] LABS: ALBUMIN 3.7 g/dl (3.4-5.0); ANION GAP 13 (8-16); BLOOD UREA NITROGEN 12 mg/dL (7-18); CALCIUM 9.9 mg/dL (8.5-10.1); CHLORIDE 106 mmol/L (98-107); CO2 24 mmol/L (21-32); CREATININE 0.7 mg/dL (0.55-1.02); GLUCOSE,RANDOM 117 mg/dL (74-106); MAGNESIUM 2.1 mg/dL (1.8-2.4); PHOSPHOROUS 2.3 mg/dL (2.5-4.9); POTASSIUM 3.3 mmol/L (3.5-5.1); SGOT/AST 41 U/L (15-37); SGPT/ALT 18 U/L (12-78); SODIUM 143 mmol/L (136-145)
[2017-08-23 08:30] LABS: ALK PHOS 93 U/L (45-117); BILIRUBIN,TOTAL 0.8 mg/dL (0.2-1.0)
[2017-08-23] MEDS: LOSARTAN POTASSIUM 50 MG TABLET (FP) PO SCH (09:35)
[2017-08-23] MEDS: amLODIPine BESYLATE 10 MG TABLET (FP) PO SCH (09:36)
[2017-08-23] MEDS: ASPIRIN 81 MG CHEWABLE TABLETS PO SCH (09:36)
[2017-08-23] MEDS: CLOPIDOGREL BISULFATE 75 MG TABLET (FP) PO SCH (12:09)
[2017-08-23] MEDS ORDERED: POTASSIUM CHLORIDE TABS 20 MEQ TABLET.ER (FP) PO ONE (12:15)
--- NOTE | 2017-08-23 12:37 | PN ---
Progress Note, S[employer] - Note Progress Note: Soft diet/thin liquid ordered. Tolerated breakfast. Hiccoughing after drinking water and brief dry cough. She reports it feeling "funny" in throat areas. Esoph dysmotility vs silent aspiration vs normal swallow. Bedside evaluation not conclusive. Still c/o nausea- Cerebellar stroke related? No vomiting since incident in ER. Trial of nectar thick liquid with pt subjectively doing better. Trial [place] thick liquid, soft diet MBS if s/s of dysphagia.
[2017-08-23] MEDS: NAPH,MB-DB/K PH,MBDB POWDER PACKET PO SCH ×2 (14:35→22:06)
--- NOTE | 2017-08-23 19:47 | PN ---
Teaching Attending Note Name of Resident: Dilan Mata ATTENDING PHYSICIAN STATEMENT I saw and evaluated the patient. I reviewed the resident's note and discussed the case with the resident. I agree with the resident's findings and plan as documented. SUBJECTIVE: OBJECTIVE: Vital Signs Temperature 97 F L 08/23/17 14:00 Pulse Rate 83 08/23/17 14:00 Respiratory Rate 20 08/23/17 14:00 Blood Pressure 140/75 08/23/17 14:00 O2 Sat by Pulse Oximetry (%) 96 08/23/17 09:00 CBCD WBC 9.4 K/mm3 (4.0-10.0) 08/23/17 07:05 RBC 5.65 M/mm3 (3.60-5.2) H 08/23/17 07:05 Hgb 15.2 GM/dL (10.7-15.3) 08/23/17 07:05 Hct 45.7 % (32.4-45.2) H 08/23/17 07:05 MCV 80.9 fl (80-96) 08/23/17 07:05 MCHC 33.3 g/dl (32.0-36.0) 08/23/17 07:05 RDW 14.8 % (11.6-15.6) 08/23/17 07:05 Plt Count 216 K/MM3 (134-434) 08/23/17 07:05 MPV 8.1 fl (7.5-11.1) 08/23/17 07:05 CMP Sodium 143 mmol/L (136-145) 08/23/17 07:02 Potassium 3.3 mmol/L (3.5-5.1) L 08/23/17 07:02 Chloride 106 mmol/L (98-107) 08/23/17 07:02 Carbon Dioxide 24 mmol/L (21-32) 08/23/17 07:02 Anion Gap 13 (8-16) 08/23/17 07:02 BUN 12 mg/dL (7-18) 08/23/17 07:02 Creatinine 0.7 mg/dL (0.55-1.02) 08/23/17 07:02 Creat Clearance w eGFR > 60 (>60) 08/23/17 07:02 Random Glucose 117 mg/dL (74-106) H 08/23/17 07:02 Calcium 9.9 mg/dL (8.5-10.1) 08/23/17 07:02 Total Bilirubin 0.8 mg/dL (0.2-1.0) 08/23/17 07:02 AST 41 U/L (15-37) H 08/23/17 07:02 ALT 18 U/L (12-78) 08/23/17 07:02 Alkaline Phosphatase 93 U/L (45-117) 08/23/17 07:02 Total Protein 8.0 g/dl (6.4-8.2) 08/23/17 07:02 Albumin 3.7 g/dl (3.4-5.0) 08/23/17 07:02 CARDIAC ENZYMES Creatine Kinase 153 IU/L (26-192) 08/22/17 06:00 Troponin I < 0.02 ng/ml (0.00-0.05) 08/22/17 06:00 Current Medications Generic Name Dose Route Start Last Admin Trade Name Freq PRN Reason Stop Dose Admin Amlodipine Besylate 10 mg 08/22/17 10:00 08/23/17 09:36 Norvasc - PO 10 mg DAILY JOSE Administration Aspirin 81 mg 08/22/17 10:00 08/23/17 09:36 Asa - PO 81 mg DAILY JOSE Administration Atorvastatin Calcium 10 mg 08/21/17 22:00 08/22/17 22:53 Lipitor - PO 10 mg HS JOSE Administration Clopidogrel Bisulfate 75 mg 08/23/17 11:45 08/23/17 12:09 Plavix - PO 75 mg DAILY JOSE Administration Sodium Chloride 1,000 mls @ 42 mls/hr 08/21/17 22:10 08/22/17 22:53 Normal Saline - IV 42 mls/hr ASDIR JOSE Administration Levofloxacin 750 mg in 150 mls @ 150 mls/hr 08/22/17 06:00 08/23/17 06:19 Levaquin 750 Mg Premixed Ivpb - IVPB 150 mls/hr DAILY@0600 JOSE Administration Losartan Potassium 100 mg 08/22/17 10:00 08/23/17 09:35 Cozaar - PO 100 mg DAILY JOSE Administration Potassium Phos/Sodium Phos 1 packet 08/23/17 14:00 08/23/17 14:35 Phos-Nak Packet - PO 1 packet TID JOSE Administration Promethazine HCl 12.5 mg 08/22/17 16:26 Phenergan - PO Q6H PRN NAUSEA AND/OR VOMITING Home Medications Medication Instructions Recorded Amlodipine Besylate [Norvasc -] 10 mg PO DAILY 03/31/13 Aspirin [ASA -] 81 mg PO DAILY 03/31/13 Carvedilol [Coreg -] 12.5 mg PO BID 03/31/13 Simvastatin [Zocor] 20 mg PO HS 03/31/13 Ascorbic Acid [Vitamin C -] 500 mg PO DAILY 08/21/17 Cholecalciferol (Vitamin D3) 400 unit PO DAILY 08/21/17 [Vitamin D3] Losartan Potassium 100 mg PO DAILY 08/21/17 ASSESSMENT AND PLAN:
--- NOTE | 2017-08-23 20:30 | PN ---
Physical Exam: SUBJECTIVE: Patient seen and examined at bedside. Patient continues to complain of dizziness, but notes improvement today. OBJECTIVE: Vital Signs Period Temp Pulse Resp BP Sys/Castellanos Pulse Ox Last 24 Hr 97 F-98.4 F 76-88 18-20 140-187/75-95 92-96 GENERAL: The patient is awake, alert, and fully oriented, in no acute distress. HEAD: Normal with no signs of trauma. EYES: PERRL, extraocular movements intact, sclera anicteric, conjunctiva clear. No ptosis. NECK: Trachea midline, full range of motion, supple. LUNGS: Breath sounds equal, clear to auscultation bilaterally, no wheezes, no crackles, no accessory muscle use. HEART: Regular rate and rhythm, S1, S2 without murmur, rub or gallop. ABDOMEN: Soft, nontender, nondistended, normoactive bowel sounds, no guarding, no rebound, no hepatosplenomegaly, no masses. EXTREMITIES: 2+ pulses, warm, well-perfused, no edema. NEUROLOGICAL: Cranial nerves II through X grossly intact. Normal speech, gait not observed. strength 5/5 in all extremities b/l. Dysmetria present, but improved since admission. PSYCH: Normal mood, normal affect. SKIN: Warm, dry, normal turgor, no rashes or lesions noted Laboratory Results - last 24 hr 08/23/17 08/23/17 08/23/17 07:02 07:02 07:05 WBC 9.4 RBC 5.65 H Hgb 15.2 Hct 45.7 H MCV 80.9 MCH 27.0 MCHC 33.3 RDW 14.8 Plt Count 216 MPV 8.1 Neutrophils % 76.8 Lymphocytes % 13.0 Monocytes % 8.8 Eosinophils % 0.9 Basophils % 0.5 PT with INR 12.40 H INR 1.10 PTT (Actin FS) 29.3 Sodium 143 Potassium 3.3 L Chloride 106 Carbon Dioxide 24 Anion Gap 13 BUN 12 Creatinine 0.7 Creat Clearance w eGFR > 60 Random Glucose 117 H Calcium 9.9 Phosphorus 2.3 L Magnesium 2.1 Total Bilirubin 0.8 AST 41 H ALT 18 Alkaline Phosphatase 93 Total Protein 8.0 Albumin 3.7 Active Medications Generic Name Dose Route Start Last Admin Trade Name Freq PRN Reason Stop Dose Admin Amlodipine Besylate 10 mg 08/22/17 10:00 08/23/17 09:36 Norvasc - PO 10 mg DAILY JOSE Administration Aspirin 81 mg 08/22/17 10:00 08/23/17 09:36 Asa - PO 81 mg DAILY JOSE Administration Atorvastatin Calcium 10 mg 08/21/17 22:00 08/22/17 22:53 Lipitor - PO 10 mg HS JOSE Administration Clopidogrel Bisulfate 75 mg 08/23/17 11:45 08/23/17 12:09 Plavix - PO 75 mg DAILY JOSE Administration Sodium Chloride 1,000 mls @ 42 mls/hr 08/21/17 22:10 08/22/17 22:53 Normal Saline - IV 42 mls/hr ASDIR JOSE Administration Levofloxacin 750 mg in 150 mls @ 150 mls/hr 08/22/17 06:00 08/23/17 06:19 Levaquin 750 Mg Premixed Ivpb - IVPB 150 mls/hr DAILY@0600 JOSE Administration Losartan Potassium 100 mg 08/22/17 10:00 08/23/17 09:35 Cozaar - PO 100 mg DAILY JOSE Administration Potassium Phos/Sodium Phos 1 packet 08/23/17 14:00 08/23/17 14:35 Phos-Nak Packet - PO 1 packet TID JOSE Administration Promethazine HCl 12.5 mg 08/22/17 16:26 Phenergan - PO Q6H PRN NAUSEA AND/OR VOMITING ASSESSMENT/PLAN: 79yo F w/ PMHx of HTN, HLD, Defibrillator placement presented to ED w/ dizziness , found to have acute L cerebellar CVA # Ischemic Cerebellar CVA -Head CT shows possible development of new 1.7cm L cerebellar infarct. -awaiting placement for [facility] for rehab. -Speech/swallow eval cleared patient for nectar thick liquids -PT -Neuro consult -CTA shows partial occlusion of PICA -phenergan prn nausea # Bifascicular Block -Cardio consult -chronic -no palpitations -per patient, ICD did not fire # UTI -pt currently Asymptomatic -UCx pending -Levaquin 750 daily as pt PCN allergic # HTN -Allow permissive HTN -C/w home coreg, norvasc, losartan # HLD -c/w home lipitor 10 HS # FEN -NS @ 42 -monitor lytes #Prophy -SCDs. # Dispo -Admit to stroke tele Visit type - Emergency Visit Emergency Visit: Yes ED Registration Date: 08/21/17 Care time: The patient presented to the Emergency Department on the above date and was hospitalized for further evaluation of their emergent condition. - New Patient This patient is new to me today: No - Critical Care Critical Care patient: No
[2017-08-23] MEDS: ATORVASTATIN CA 10 MG TABLET (FP) PO SCH (22:06)
[2017-08-23] MEDS: SODIUM CHLORIDE 1,000 ML IV SCH (22:06)
[2017-08-24] MEDS: NAPH,MB-DB/K PH,MBDB POWDER PACKET PO SCH ×2 (05:22→13:02)
[2017-08-24 07:01] LABS: ANION GAP 9 (8-16); BLOOD UREA NITROGEN 11 mg/dL (7-18); CALCIUM 9.5 mg/dL (8.5-10.1); CHLORIDE 106 mmol/L (98-107); CO2 26 mmol/L (21-32); CREATININE 0.7 mg/dL (0.55-1.02); GLUCOSE,RANDOM 109 mg/dL (74-106); MAGNESIUM 1.9 mg/dL (1.8-2.4); PHOSPHOROUS 2.9 mg/dL (2.5-4.9); POTASSIUM 3.5 mmol/L (3.5-5.1); SODIUM 141 mmol/L (136-145)
[2017-08-24] MEDS: amLODIPine BESYLATE 10 MG TABLET (FP) PO SCH (09:05)
[2017-08-24] MEDS: ASPIRIN 81 MG CHEWABLE TABLETS PO SCH (09:05)
[2017-08-24] MEDS: CLOPIDOGREL BISULFATE 75 MG TABLET (FP) PO SCH (09:05)
[2017-08-24] MEDS: LOSARTAN POTASSIUM 50 MG TABLET (FP) PO SCH (09:05)
[2017-08-24] MEDS ORDERED: MAGNESIUM SULF 50% (8.12 MEQ/2 ML-1 GM VIAL) IVPB ONE (12:31)
[2017-08-24] MEDS ORDERED: LACTOBACILLUS ACIDOPHILUS 1 TABLET PO SCH (13:00)
[2017-08-24] MEDS ORDERED: POTASSIUM CHLORIDE TABS 20 MEQ TABLET.ER (FP) PO SCH (13:00)
[2017-08-24] MEDS ORDERED: MAGNESIUM 1GM/D5W - 1 GM/100 ML IVPB IVPB ONE (13:30)
[2017-08-24 15:00] VITALS: BP 141/90; PULSE 81; TEMP 98.6
--- NOTE | 2017-08-24 15:02 | PN ---
Progress Note, DOOR TO DOOR SALES REPRESENTATIVE - Note Progress Note: Selected Entries 08/24/17 08/24/17 08/24/17 02:00 06:00 09:10 Breakfast 75% Lunch Temperature 97.8 F 98.2 F 08/24/17 08/24/17 10:00 13:10 Breakfast Lunch 75% Temperature 98.5 F 98.6 F Tolerating soft diet and [place] thick liquid, soft diet Pending d/c to [facility]. Suggest f/u by sp pathology. MBS, as out pt, to upgrade diet when appropriate or if s/s of dysphagia.
--- NOTE | 2017-08-24 20:45 | DS ---
Physical Exam: SUBJECTIVE: Patient seen and examined at bedside. No new complaints. continues to feel dizzy. OBJECTIVE: Vital Signs Period Temp Pulse Resp BP Sys/Castellanos Pulse Ox Last 24 Hr 97.8 F-98.7 F 75-85 18-20 129-144/77-96 95-96 PHYSICAL EXAM GENERAL: The patient is awake, alert, and fully oriented, in no acute distress. HEAD: Normal with no signs of trauma. EYES: PERRL, extraocular movements intact, sclera anicteric, conjunctiva clear. No ptosis. NECK: Trachea midline, full range of motion, supple. LUNGS: Breath sounds equal, clear to auscultation bilaterally, no wheezes, no crackles, no accessory muscle use. HEART: Regular rate and rhythm, S1, S2 without murmur, rub or gallop. ABDOMEN: Soft, nontender, nondistended, normoactive bowel sounds, no guarding, no rebound, no hepatosplenomegaly, no masses. EXTREMITIES: 2+ pulses, warm, well-perfused, no edema. NEUROLOGICAL: Cranial nerves II through X grossly intact. Normal speech, gait not observed. strength 5/5 in all extremities b/l. Dysmetria present, but improved since admission. PSYCH: Normal mood, normal affect. SKIN: Warm, dry, normal turgor, no rashes or lesions noted LABS Laboratory Results - last 24 hr 08/24/17 05:35 Sodium 141 Potassium 3.5 Chloride 106 Carbon Dioxide 26 Anion Gap 9 BUN 11 Creatinine 0.7 Random Glucose 109 H Calcium 9.5 Phosphorus 2.9 Magnesium 1.9 HOSPITAL COURSE: Date of Admission:08/21/17 The patient is an 79yo F w/ PMHx of HTN, HLD, Defibrillator placement who presented to ED c/o dizziness and unsteadiness for approx. one day prior to admission. In the ED, she was seen to be dizzy, nauseous and had several episodes of NBNB vomiting. A CT head showed a new 1.7 cm L cerebellar infarct without hemorrhage. The patient was outside of the TPa window. The patient was admitted for further treatment. Neurology was consulted. A speech and swallow eval was obtained. An MRI was contraindicated as the patient had a pacemaker. Physical therapy was ordered. The patient was found to also have a UTI. She was treated with reglan, phenergan, labetolol, levofloxacin for 3 days (patient had a PCN allergy) and plavix. The patient had improvement of symptoms. The patient was discharged to [facility] for further rehabilitation. She was instructed to follow up with her PCP, a neurologist and a architectural engineering teacher after discharge. Date of Discharge: 08/24/17 Minutes to complete discharge: 65 <LeidyleidyDilan buckner - Last Filed: 08/24/17 20:34> Physical Exam: Patient has no new complains , is being discharged to rehab fallon Lucero at bedside. Vital Signs Temperature 98.6 F 08/24/17 13:10 Pulse Rate 81 08/24/17 13:10 Respiratory Rate 19 08/24/17 13:10 Blood Pressure 141/90 08/24/17 13:10 O2 Sat by Pulse Oximetry (%) 96 08/24/17 10:00 CBCD WBC 9.4 K/mm3 (4.0-10.0) 08/23/17 07:05 RBC 5.65 M/mm3 (3.60-5.2) H 08/23/17 07:05 Hgb 15.2 GM/dL (10.7-15.3) 08/23/17 07:05 Hct 45.7 % (32.4-45.2) H 08/23/17 07:05 MCV 80.9 fl (80-96) 08/23/17 07:05 MCHC 33.3 g/dl (32.0-36.0) 08/23/17 07:05 RDW 14.8 % (11.6-15.6) 08/23/17 07:05 Plt Count 216 K/MM3 (134-434) 08/23/17 07:05 MPV 8.1 fl (7.5-11.1) 08/23/17 07:05 CMP Sodium 141 mmol/L (136-145) 08/24/17 05:35 Potassium 3.5 mmol/L (3.5-5.1) 08/24/17 05:35 Chloride 106 mmol/L (98-107) 08/24/17 05:35 Carbon Dioxide 26 mmol/L (21-32) 08/24/17 05:35 Anion Gap 9 (8-16) 08/24/17 05:35 BUN 11 mg/dL (7-18) 08/24/17 05:35 Creatinine 0.7 mg/dL (0.55-1.02) 08/24/17 05:35 Creat Clearance w eGFR > 60 (>60) 08/23/17 07:02 Random Glucose 109 mg/dL (74-106) H 08/24/17 05:35 Calcium 9.5 mg/dL (8.5-10.1) 08/24/17 05:35 Total Bilirubin 0.8 mg/dL (0.2-1.0) 08/23/17 07:02 AST 41 U/L (15-37) H 08/23/17 07:02 ALT 18 U/L (12-78) 08/23/17 07:02 Alkaline Phosphatase 93 U/L (45-117) 08/23/17 07:02 Total Protein 8.0 g/dl (6.4-8.2) 08/23/17 07:02 Albumin 3.7 g/dl (3.4-5.0) 08/23/17 07:02 CARDIAC ENZYMES Creatine Kinase 153 IU/L (26-192) 08/22/17 06:00 Troponin I < 0.02 ng/ml (0.00-0.05) 08/22/17 06:00 Home Medications Medication Instructions Recorded Amlodipine Besylate [Norvasc -] 10 mg PO DAILY 03/31/13 Aspirin [ASA -] 81 mg PO DAILY 03/31/13 Carvedilol [Coreg -] 12.5 mg PO BID 03/31/13 Simvastatin [Zocor -] 20 mg PO HS 03/31/13 Ascorbic Acid [Vitamin C -] 500 mg PO DAILY 08/21/17 Cholecalciferol (Vitamin D3) 400 unit PO DAILY 08/21/17 [Vitamin D3] Losartan Potassium 100 mg PO DAILY 08/21/17 Clopidogrel Bisulfate [Plavix -] 75 mg PO DAILY #30 tablet 08/24/17 Lactobacillus Acidophilus [Bacid -] 1 cap PO BID #60 cap 08/24/17 <Chidi Paz - Last Filed: 08/24/17 20:49> Discharge Summary Reason For Visit: CEREBELLAR INFARCTION - Home Medications Comprehensive Discharge Medication List: Ambulatory Orders Amlodipine Besylate [Norvasc -] 10 mg PO DAILY 03/31/13 Aspirin [ASA -] 81 mg PO DAILY 03/31/13 Carvedilol [Coreg -] 12.5 mg PO BID 03/31/13 Simvastatin [Zocor -] 20 mg PO HS 03/31/13 Ascorbic Acid [Vitamin C -] 500 mg PO DAILY 08/21/17 Cholecalciferol (Vitamin D3) [Vitamin D3] 400 unit PO DAILY 08/21/17 Losartan Potassium 100 mg PO DAILY 08/21/17 Clopidogrel Bisulfate [Plavix -] 75 mg PO DAILY #30 tablet 08/24/17 Lactobacillus Acidophilus [Bacid -] 1 cap PO BID #60 cap 08/24/17 <Dilan Mata - Last Filed: 08/24/17 20:34> - Home Medications Comprehensive Discharge Medication List: Ambulatory Orders Amlodipine Besylate [Norvasc -] 10 mg PO DAILY 03/31/13 Aspirin [ASA -] 81 mg PO DAILY 03/31/13 Carvedilol [Coreg -] 12.5 mg PO BID 03/31/13 Simvastatin [Zocor -] 20 mg PO HS 03/31/13 Ascorbic Acid [Vitamin C -] 500 mg PO DAILY 08/21/17 Cholecalciferol (Vitamin D3) [Vitamin D3] 400 unit PO DAILY 08/21/17 Losartan Potassium 100 mg PO DAILY 08/21/17 Clopidogrel Bisulfate [Plavix -] 75 mg PO DAILY #30 tablet 08/24/17 Lactobacillus Acidophilus [Bacid -] 1 cap PO BID #60 cap 08/24/17 <Chidi Paz - Last Filed: 08/24/17 20:49> Condition: Improved - Instructions Diet, Activity, Other Instructions: You were admitted for the treatment of your stroke. You were also treated for a UTI with Levaquin 750mg IV for 3 days. We are transferring you to [facility] for rehab so that you can get stronger. We are sending you home with a new medication to help thin your blood and prevent another stroke. This medication is called plavix. You should take 75mg of this medication once per day. please do not stop the medication at any time, and do not skip a dose unless discussed with your neurologist. You should continue to take the rest of your home medications as prescribed. You should follow up with your primary care physician within one week of discharge. Information for Dr. No has been included in your discharge paperwork. please call to make an appointment. You should also follow up with a neurologist within one week of discharge home. Information for Dr. Wang has been included in your discharge paperwork. Please call to make an appointment. You should also follow up with a architectural engineering teacher within one week of discharge home. Information for Dr. Oropeza has been included in your discharge paperwork. Please call to make an appointment. If you begin to experience chest pain, shortness of breath, worsening dizziness , worsening weakness or if any of your symptoms get worse, please call your doctor or return to the emergency department. Referrals: Moi Huerta MD [Primary Care Provider] - 1 Week Waldemar Wang MD [Staff Physician] - 1 Week Chato Oropeza MD [Staff Physician] - 1 Week Disposition: LONG-TERM FACILITY This patient is new to me today: No Emergency Visit: Yes ED Registration Date: 08/21/17 Care time: The patient presented to the Emergency Department on the above date and was hospitalized for further evaluation of their emergent condition. Critical Care patient: No - Discharge Referral Referred to [facility] Yes Physician Referral: Moi No MD ([facility]) <Dilan Mata - Last Filed: 08/24/17 20:34>
== END 2017-08-24 16:09 | DRG 65 ==
LOC: JER 13:09 → JERBED 20:42 → J4S 08-22 22:12
PROVIDERS: ADMIT Internal Medicine; ATTEND Internal Medicine
DX: I63.9 Cerebral infarction, unspecified (principal); I45.2 Bifascicular block; N39.0 Urinary tract infection, site not specified; I10 Essential (primary) hypertension; E78.5 Hyperlipidemia, unspecified
CPT/HCPCS: 36415; 70450-TC; 70496-TC; 71045-TC-FY; 80048; 80053; 80061; 81003; 81015; 82550; 82553; 82607; 82746; 83036; 83721; 83735; 83880; 84100; 84443; 84484; 85025; 85610; 85730; 87086; 93005; 93010; 93306-TC; 93880-TC; 97116-GP; 97162-GP; 99285-25; J7030

== ENCOUNTER 2019-06-04 12:56 | Emergency (ER) | payer BC, OTHER ==
[2019-06-04 13:08] VITALS: BP 124/74; PULSE 88; TEMP 97.8; BMI 24.7
--- NOTE | 2019-06-04 13:09 | PDOC ---
Rapid Medical Evaluation Time Seen by Provider: 06/04/19 13:05 Medical Evaluation: Allergies Allergy/AdvReac Type Severity Reaction Status Date / Time Penicillins Allergy Unknown Verified 08/21/17 13:11 egg Allergy Verified 08/21/17 13:11 06/04/19 13:05 cc: unsteady gait > 1 week HPI: Patient brought in for unsteady gait and change in mentation. PE: walking with walker, no facial drooping no pronation drift orders: labs, head ct This patient will proceed to the main emergency department for further evaluation Discharge Disposition - Diagnosis Unsteady gait - Referrals - Patient Instructions - Post Discharge Activity
[2019-06-04 15:47] LABS: BASO % 0.2 % (0-2.0); HEMATOCRIT 44.2 % (32.4-45.2); HEMOGLOBIN 14.6 GM/dL (10.7-15.3); LYMPH % 17.4 % (8-40); MCH 27.1 pg (25.7-33.7); MEAN CELL VOLUME 82.3 fl (80-96); MEAN PLT VOLUME 7.8 fl (7.5-11.1); NEUT % 71.4 % (42.8-82.8); PLATELET COUNT 263 K/MM3 (134-434); RBC 5.37 M/mm3 (3.60-5.2); RDW 14.9 % (11.6-15.6)
--- NOTE | 2019-06-04 17:08 | PDOC ---
History of Present Illness - General Chief Complaint: Weakness Stated Complaint: FALL Time Seen by Provider: 06/04/19 13:05 History Source: Patient Exam Limitations: No Limitations - History of Present Illness Initial Comments: 06/04/19 16:08 83-year-old female presents to ED status post fall approximately 1 week ago while in the bathroom. As per daughter patient landed between the toilet and the bathtub but di d not hit the floor and was able to get up and ambulate back to the bedroom. But since then the daughter states patient has been a little bit more confused and unsure if she is having a recurrent stroke due to her history of CVA 2 years ago. Patient states did not hit her head nor did she pass out. Patient is currently asymptomatic including urinary complaints, headache, visual changes or abdominal pain. Patient has had no change in solid intake and drinking enough fluids. Is this a multiple visit Asthma Patient?: No Timing/Duration: 1 week Severity: mild Associated Symptoms: reports: weakness Past History - Travel Traveled outside of the country in the last 30 days: No Close contact w/someone who was outside of country & ill: No - Past Medical History Allergies/Adverse Reactions: Allergies Allergy/AdvReac Type Severity Reaction Status Date / Time Penicillins Allergy Unknown Verified 06/04/19 13:08 egg Allergy Verified 06/04/19 13:08 Home Medications: Ambulatory Orders Amlodipine Besylate [Norvasc -] 10 mg PO DAILY 03/31/13 Aspirin [ASA -] 81 mg PO DAILY 03/31/13 Carvedilol [Coreg -] 12.5 mg PO BID 03/31/13 Simvastatin [Zocor -] 20 mg PO HS 03/31/13 Ascorbic Acid [Vitamin C -] 500 mg PO DAILY 08/21/17 Cholecalciferol (Vitamin D3) [Vitamin D3] 400 unit PO DAILY 08/21/17 Losartan Potassium 100 mg PO DAILY 08/21/17 Clopidogrel Bisulfate [Plavix -] 75 mg PO DAILY #30 tablet 08/24/17 Lactobacillus Acidophilus [Bacid -] 1 cap PO BID #60 cap 08/24/17 Cardiac Disorders: Yes COPD: No HTN: Yes - Surgical History Cardiac Surgery: Yes (AICD) - Immunization History Immunization Up to Date: Yes - Psycho Social/Smoking Cessation Hx Smoking Status: No Smoking History: Never smoked Have you smoked in the past 12 months: No Number of Cigarettes Smoked Daily: 0 Hx Alcohol Use: No Drug/Substance Use Hx: No Substance Use Type: None Patient Lives Alone: No Lives with/in: daughter Review of Systems - Review of Systems Able to Perform ROS?: Yes Is the patient limited Cymraes proficient: No Constitutional: No: Symptoms Reported HEENTM: No: Symptoms Reported Respiratory: No: Symptoms reported Cardiac (ROS): No: Symptoms Reported ABD/GI: No: Symptoms Reported : No: Symptoms Reported Musculoskeletal: No: Symptoms Reported Integumentary: No: Symptoms Reported Neurological: Yes: Weakness Hematologic/Lymphatic: No: Symptoms Reported *Physical Exam - Vital Signs Last Vital Signs Temp Pulse Resp BP Pulse Ox 97.8 F 88 18 124/74 98 06/04/19 13:03 06/04/19 13:03 06/04/19 13:03 06/04/19 13:03 06/04/19 13:03 - Physical Exam General Appearance: Yes: Nourished, Appropriately Dressed. No: Apparent Distress HEENT: positive: EOMI, TMs Normal, Pharynx Normal. negative: Pale Conjunctivae Neck: positive: Supple Respiratory/Chest: positive: Lungs Clear, Normal Breath Sounds. negative: Respiratory Distress, Accessory Muscle Use Cardiovascular: positive: Regular Rhythm, Regular Rate. negative: Murmur Gastrointestinal/Abdominal: positive: Soft. negative: Tenderness Extremity: positive: Normal Inspection Integumentary: positive: Normal Color, Warm, Moist Neurologic: positive: Fully Oriented, Alert, Normal Mood/Affect, Motor Strength 5/5 (ambulatory with walker) ED Treatment Course - LABORATORY CBC & Chemistry Diagram: 06/04/19 14:25 - ADDITIONAL ORDERS Additional order review: Laboratory Results 06/04/19 14:25 Troponin I < 0.02 06/04/19 14:25 RBC 5.37 H MCV 82.3 MCHC 33.0 RDW 14.9 MPV 7.8 Neutrophils % 71.4 Lymphocytes % 17.4 D Monocytes % 9.0 Eosinophils % 2.0 D Basophils % 0.2 Medical Decision Making - Medical Decision Making 06/04/19 16:12 Chief complaint: Intermittent weakness for the past week since her fall in the bathroom 1 week ago. no c/o confusion Exam: No neurofocal deficits vital signs stable. No visible injury. Plan: Head CT, labs and urine ordered 06/04/19 17:13 Laboratory Tests 06/04/19 06/04/19 14:25 14:25 WBC 8.0 Hgb 14.6 Hct 44.2 Absolute Neuts (auto) 5.7 Troponin I < 0.[address] negative for acute pathology. Urine pending. 06/04/19 18:04 Laboratory Tests 06/04/19 16:35 Urine Appearance Turbid Urine pH >= 9.0 H D Ur Specific [place] 1.026 Urine Protein 100 Urine Ketones Trace H Urine Blood Negative Urine Nitrite Negative Urine Bilirubin Negative Ur Leukocyte Esterase 4+ H Urine WBC (Auto) 307.0 Urine RBC (Auto) 5.5 Urine Casts (Auto) 492.39 U Epithel Cells (Auto) 4.0 Urine Bacteria (Auto) 5994.7 06/04/19 18:06 Patient to be treated with Bactrim urine culture sent Discharge - Discharge Information Problems reviewed: Yes Clinical Impression/Diagnosis: UTI (urinary tract infection) Condition: Good Disposition: HOME - Follow up/Referral Referrals: Moi Huerta MD [Primary Care Provider] - - Patient Discharge Instructions Patient Printed Discharge Instructions: DI for Urinary Tract Infection (UTI) Additional Instructions: Have patient drink plenty of fluids clean well from front to back, wear cotton underwear and change under briefs frequently if wearing incontinent pads. Take antibiotics as prescribed and follow-up with urologist - Post Discharge Activity
[2019-06-04 17:59] LABS: PH,URINE >= 9.0 (5.0-8.0); URINE APPEARANCE TURBID; URINE BILIRUBIN NEGATIVE (NEGATIVE); URINE COLOR DK YELLOW; URINE GLUCOSE (UA) NEGATIVE (NEGATIVE); URINE KETONE TRACE (NEGATIVE); URINE PROTEIN 100 (NEGATIVE)
[2019-06-04 18:00] LABS: HYALINE CASTS 492.39 /lpf (0-8); URINE BACTERIA 5994.7 /hpf (NEGATIVE); URINE LEUK ESTERASE 4+ (NEGATIVE); URINE NITRITE NEGATIVE (NEGATIVE); URINE RBC 5.5 /hpf (0-4)
== END 2019-06-04 17:05 | disposition home or self-care (01) ==
LOC: JER 12:56
DX: N39.0 Urinary tract infection, site not specified (principal); W18.39XA Other fall on same level, initial encounter; Y93.89 Activity, other specified; Y92.012 Bathroom of single-family (private) house as the place of occurrence of the external cause; Y99.8 Other external cause status; Z88.0 Allergy status to penicillin; Z91.012 Allergy to eggs; I25.10 Atherosclerotic heart disease of native coronary artery without angina pectoris; I10 Essential (primary) hypertension; Z95.810 Presence of automatic (implantable) cardiac defibrillator; Z86.73 Personal history of transient ischemic attack (TIA), and cerebral infarction without residual deficits; Z99.89 Dependence on other enabling machines and devices
CPT/HCPCS: 36415; 70450-TC; 81003; 84484; 85025; 87086; 87186; 99283-25

== ENCOUNTER 2019-06-27 14:50 | Emergency (ER) | payer BC, OTHER ==
[2019-06-27 15:20] VITALS: BP 138/76; PULSE 66; TEMP 98.3; BMI 24.6
[2019-06-27 15:48] LABS: EPI CELLS 2.5 /HPF (0-5/HPF); HYALINE CASTS 17 /lpf (0-8); URINE APPEARANCE TURBID; URINE BACTERIA 477.3 /hpf (NEGATIVE); URINE BILIRUBIN NEGATIVE (NEGATIVE); URINE COLOR DK YELLOW; URINE GLUCOSE (UA) NEGATIVE (NEGATIVE); URINE KETONE TRACE (NEGATIVE); URINE LEUK ESTERASE 3+ (NEGATIVE); URINE NITRITE NEGATIVE (NEGATIVE); URINE PROTEIN 3+ (NEGATIVE); URINE WBC 938 /hpf (0-5)
[2019-06-27 16:03] LABS: URINE CRYSTALS NON SEEN /hpf; URINE RBC 403.6 /hpf (0-4); YEAST NON SEEN (NEGATIVE)
[2019-06-27] MEDS ORDERED: CEPHALEXIN MONOHYDRATE 500 MG CAPSULE (UD) PO ONE (16:49)
--- NOTE | 2019-06-27 16:55 | PDOC ---
Attending Attestation - Resident Resident Name: PengQuirino - ED Attending Attestation I have performed the following: I have examined & evaluated the patient, The case was reviewed & discussed with the resident, I agree w/resident's findings & plan, Exceptions are as noted - HPI HPI: 06/27/19 16:52 83yoF hx of parkinson's disease, dementia, frequent UTI presents brought by family for concern of recurrent UTI. Per family, pt seems slightly more unsteady than usual and seems less insurance defense attorney than usual today. These are typically symptoms of her UTI. No fevers, no n/v/d, no c/o dysuria, no back/ flank pain, no cp/sob, no uri/cough. - Physicial Exam PE: 06/27/19 16:53 NAD, well appearing RRR CTABL soft NTND ambulating w/ steady gait independantly in ED. pt is answering questions appropriately A&O x 3 - Medical Decision Making 06/27/19 16:54 83yoF w/ concerns by family for UTI, mild decline in function today. - UA - dispo per results, +/- abx.
--- NOTE | 2019-06-27 16:56 | PDOC ---
History of Present Illness - General Chief Complaint: Revisit, Lab Variance Stated Complaint: FOLLOW UP Time Seen by Provider: 06/27/19 16:18 History Source: Patient Exam Limitations: No Limitations - History of Present Illness Initial Comments: 06/27/19 16:51 HPI: 83yo F PMH Parkinson's, overactive bladder, recurrent UTIs, presenting with burning with urination. Denies fevers, chills, nausea, vomiting, headache, feeling ill, changes in mentation. Alert and oriented to person, place, time. Parkinson's symptoms progressing over the past several months with confusion regarding which family member's have daughters and where people live. Progressive subacute changes in her gait. No chest pain, SOB, cough, difficulty breathing, pain. Past History - Travel Traveled outside of the country in the last 30 days: No Close contact w/someone who was outside of country & ill: No - Past Medical History Allergies/Adverse Reactions: Allergies Allergy/AdvReac Type Severity Reaction Status Date / Time Penicillins Allergy Unknown Verified 06/04/19 13:08 egg Allergy Verified 06/04/19 13:08 Home Medications: Ambulatory Orders Amlodipine Besylate [Norvasc -] 10 mg PO DAILY 03/31/13 Aspirin [ASA -] 81 mg PO DAILY 03/31/13 Carvedilol [Coreg -] 12.5 mg PO BID 03/31/13 Simvastatin [Zocor -] 20 mg PO HS 03/31/13 Losartan Potassium 100 mg PO DAILY 08/21/17 Clopidogrel Bisulfate [Plavix -] 75 mg PO DAILY #30 tablet 08/24/17 Bupropion HCl [Bupropion Xl] 150 mg PO DAILY 06/27/19 Carbidopa/Levodopa [Carbidopa-Levo ER 50-200 Tab] 1 tab PO TID 06/27/19 Cephalexin [Keflex] 500 mg PO TID 7 Days #21 capsule 06/27/19 Mirabegron [Myrbetriq] 25 mg PO DAILY 06/27/19 Cardiac Disorders: Yes COPD: No HTN: Yes - Surgical History Cardiac Surgery: Yes (AICD) - Immunization History Immunization Up to Date: Yes - Psycho Social/Smoking Cessation Hx Smoking Status: No Smoking History: Never smoked Have you smoked in the past 12 months: No Number of Cigarettes Smoked Daily: 0 Hx Alcohol Use: No Drug/Substance Use Hx: No Substance Use Type: None Review of Systems - Review of Systems Able to Perform ROS?: Yes Is the patient limited [place] proficient: Yes Constitutional: No: Chills, Fever HEENTM: No: Nose Congestion, Throat Pain Respiratory: No: Cough, Shortness of Breath, Stridor, Wheezing, Productive cough Cardiac (ROS): No: Chest Pain, Irregular Heart Rate, Lightheadedness, Palpitations, Syncope, Chest Tightness ABD/GI: No: Constipated, Diarrhea, Nausea, Vomiting : Yes: Burning. No: Dysuria, Discharge, Frequency, Urgency Musculoskeletal: No: Back Pain, Muscle Pain, Muscle Weakness Integumentary: No: Change in Color, Pruritus, Rash Neurological: No: Headache, Numbness, Tingling, Weakness Psychiatric: No: Stressors, Change in Appetite Endocrine: No: Increased Thirst, Increased Urine Hematologic/Lymphatic: No: Anemia, Blood Clots, Easy Bleeding All Other Systems: Reviewed and Negative *Physical Exam - Vital Signs Last Vital Signs Temp Pulse Resp BP Pulse Ox 98.3 F 66 18 138/76 98 06/27/19 15:18 06/27/19 15:18 06/27/19 15:18 06/27/19 15:18 06/27/19 15:18 - Physical Exam 06/27/19 16:55 Vitals reviewed, AFVSS GEN: Well appearing, appears stated age, NAD, comfortable. AAOx3. HEENT: NCAT, EOMI, PERRL. Sclera anicteric, noninjected. No facial asymmetry. Moist mucous membranes. Normal voice. Trachea midline. CV: RRR, S1/S2, no murmurs / rubs / gallops appreciated. LUNG: CTAB, normal work of breathing. No wheezes, rales, rhonchi. No cough. Speaking full sentences. GI: Soft, NTND, +BS, no guarding, no rebound. No masses. Neg CVAT b/l. EXTREMITIES: 2+ distal pulses. No LE edema. No obvious deformities of all extremities. SKIN: Warm, dry, no rashes appreciated, non-jaundiced. PSYCH: Normal mood and affect. Cooperative and appropriate. NEURO: CN grossly intact. Moving all extremities well. Normal strength and sensation grossly. ED Treatment Course - ADDITIONAL ORDERS Additional order review: Laboratory Results 02/13/20 15:24 Urine Color Dk yellow Urine Appearance Turbid Urine pH 7.0 D Ur Specific [place] 1.021 Urine Protein 3+ H Urine Glucose (UA) Negative Urine Ketones Trace H Urine Blood 3+ H Urine Nitrite Negative Urine Bilirubin Negative Urine Urobilinogen 1.0 Ur Leukocyte Esterase 3+ H Urine WBC (Auto) 938 Urine RBC (Auto) 403.6 Urine Casts (Auto) 17 U Epithel Cells (Auto) 2.5 Urine Crystals (Auto) Non seen Urine Bacteria (Auto) 477.3 Urine Yeast (Auto) Non seen Medical Decision Making - Medical Decision Making 06/27/19 16:56 83yo F PMH Parkinson's, overactive bladder, recurrent UTIs, presenting with burning with urination. History of multiple UTIs. Exam unremarkable. C/w uncomplicated UTI. - UA with UTI, prior sensitive to cephalosporins - Keflex Discharge - Discharge Information Problems reviewed: Yes Clinical Impression/Diagnosis: UTI (urinary tract infection) Qualifiers: Urinary tract infection type: site unspecified Hematuria presence: without hematuria Qualified Code(s): N39.0 - Urinary tract infection, site not specified Condition: Good Disposition: HOME - Admission No - Additional Discharge Information Prescriptions: Cephalexin [Keflex] 500 mg PO TID 7 Days #21 capsule - Follow up/Referral Referrals: Moi Huerta MD [Primary Care Provider] - - Patient Discharge Instructions Additional Instructions: You were seen and evaluated in the ED and found to have a UTI. Please turkey picker your antibiotics from the pharmacy. Take these as directed ( three times per day) for the full seven day course. Follow up with your primary care doctor in 3-5 days if symptoms persist. Return to the ED for any new or concerning symptoms including fevers, chills, nausea, vomiting, worsening abdominal pain. - Post Discharge Activity
[2019-06-27] MEDS ORDERED: CEPHALEXIN MONOHYDRATE 500 MG CAPSULE (UD) ONE (17:08)
== END 2019-06-27 17:40 | disposition home or self-care (01) ==
LOC: JER 14:50
DX: N39.0 Urinary tract infection, site not specified (principal); G20 Parkinson's disease; Z87.440 Personal history of urinary (tract) infections; Z88.0 Allergy status to penicillin; Z91.012 Allergy to eggs
CPT/HCPCS: 81003; 87086; 87186; 99283-25

== ENCOUNTER → 2019-12-12 | Day surgery (SDC) | payer BC, OTHER ==
[2019-11-28 10:33] VITALS: BMI 24.5
[2019-12-12 12:44] VITALS: TEMP 97.3
[2019-12-12 13:44] VITALS: BP 124/82; PULSE 64
--- NOTE | 2019-12-13 17:51 | PATH ---
Surgical Pathology Report Patient Name: CHASTITY GOMEZ [facility]. Rec. #: [id number] /Age/Gender: 1935 (Age: 84) / F Account: [id number] Location: ASU-ENDOSCOPY Taken: 12/12/2019 Received: 12/12/2019 Reported: 12/13/2019 Physicians: Herberth Gordillo D.O. Specimen(s) Received A: SIGMOID COLON POLYP B: SIGMOID ULCER Clinical History History of colovesicular fistula, history colon cancer Postoperative diagnosis: colon polyps, diverticulosis Final Diagnosis A. SIGMOID COLON, POLYP, POLYPECTOMY: HYPERPLASTIC POLYP. B. SIGMOID COLON, ULCER, BIOPSY: COLONIC MUCOSA WITH FOCAL ACTIVE COLITIS. SEPARATE SMALL FRAGMENT OF ACUTE INFLAMMATORY EXUDATE CONSISTENT WITH ULCER BASE. SEE COMMENT. Comment: Findings are non-specific. Although acute self-limited colitis is a consideration, among other conditions, the possibility of early inflammatory bowel disease cannot be completely excluded. History of colovesicular fistula and colon cancer noted. Suggest clinical/endoscopic correlation. Electronically Signed Gerda Pineda M.D. Gross Description A. Received in formalin, labeled "polyp sigmoid colon" is a fuentes, irregular portion of soft tissue measuring 0.3 cm. in greatest dimension. The specimen is submitted in toto in one cassette. B. Received in formalin, labeled "sigmoid ulcer" is a fuentes, irregular portion of soft tissue measuring 0.1 cm. in greatest dimension. The specimen is submitted in toto in one cassette. MLSZ/12/12/2019 sanml/12/12/2019
== END | disposition home or self-care (01) ==
LOC: JASU-ENDO 05:13
PROVIDERS: ATTEND Internal Medicine Gastroenterology
PROC: 0DBN8ZX Excision of Sigmoid Colon, Via Natural or Artificial Opening Endoscopic, Diagnostic (ICD-10-PCS; principal; 2019-12-12 12:00)
DX: Z12.11 Encounter for screening for malignant neoplasm of colon (principal); Z80.0 Family history of malignant neoplasm of digestive organs; D12.5 Benign neoplasm of sigmoid colon; K57.30 Diverticulosis of large intestine without perforation or abscess without bleeding; K63.3 Ulcer of intestine; K64.8 Other hemorrhoids
CPT/HCPCS: 88305-TC

== ENCOUNTER 2020-05-18 14:41 | Emergency (ER) | payer BC, OTHER ==
[2020-05-18 15:49] VITALS: BP 125/67; PULSE 70; TEMP 97.4; BMI 26.7
[2020-05-18 17:01] LABS: BASO % 0.4 % (0-2.0); EOS % 1.4 % (0-4.5); HEMATOCRIT 40.1 % (32.4-45.2); HEMOGLOBIN 13.1 GM/dL (10.7-15.3); LYMPH % 18.9 % (8-40); MCH 27.2 pg (25.7-33.7); MCHC 32.6 g/dl (32.0-36.0); MEAN CELL VOLUME 83.4 fl (80-96); MEAN PLT VOLUME 8.3 fl (7.5-11.1); MONO % 8.4 % (3.8-10.2); NEUT % 70.9 % (42.8-82.8); PLATELET COUNT 231 K/MM3 (134-434); RBC 4.81 M/mm3 (3.60-5.2); RDW 15.8 % (11.6-15.6); WHITE BLOOD COUNT 6.3 K/mm3 (4.0-10.0)
[2020-05-18 17:03] LABS: INR 1.08 (0.83-1.09); PROTHROMBIN TIME (PATIENT) 13.2 SEC (9.7-13.0)
[2020-05-18 17:05] LABS: ACTIVATED PTT 31.3 SECONDS (25.2-36.5)
[2020-05-18 17:17] LABS: CHLORIDE 107 mmol/L (98-107); SODIUM 141 mmol/L (136-145)
[2020-05-18 17:19] LABS: CALCIUM 9.8 mg/dL (8.5-10.1)
[2020-05-18 17:20] LABS: ALBUMIN 3.3 g/dl (3.4-5.0); ANION GAP 3 MMOL/L (8-16); BLOOD UREA NITROGEN 14.1 mg/dL (7-18); CO2 31 mmol/L (21-32); GLUCOSE,RANDOM 109 mg/dL (74-106)
[2020-05-18 17:24] LABS: BILIRUBIN,TOTAL 0.7 mg/dL (0.2-1); CREATININE 0.7 mg/dL (0.55-1.3); SGOT/AST 15 U/L (15-37); SGPT/ALT < 6 U/L (13-61); TOT PROT 6.9 g/dl (6.4-8.2)
[2020-05-18 17:26] LABS: ALK PHOS 76 U/L (45-117)
== END 2020-05-19 02:03 | disposition home or self-care (01) ==
LOC: JER 14:41
DX: M79.605 Pain in left leg (principal)
CPT/HCPCS: 36415; 75635-TC; 80053; 85025; 85610; 85730; 93005; 93010; 99285-25; Q9967